=== PATIENT | male | born 1965 | race Caucasian/White ===

== ENCOUNTER 2020-11-02 23:46 | Emergency (ER) | payer MEDICAID ==
--- NOTE | 2020-11-03 00:19 | EDM.PDOC ---
ED HPI GENERAL MEDICAL PROBLEM - General Chief Complaint: Skin Complaint Stated Complaint: HIGH BP/SPIDER BITES Time Seen by Provider: 11/03/20 00:09 Source of Information: Reports: Patient History Limitations: Reports: No Limitations - History of Present Illness INITIAL COMMENTS - FREE TEXT/NARRATIVE: 55-year-old male presents to the ED complaining of numerous skin sores nape of neck lower back forearms dorsal hands abdominal wall and both anterior lower legs. He has had these for a lengthy period of time. Patient has severe dry skin particularly to his feet with cracking of the heels and in between the toes. Most of his skin itch and problems are secondary to dry skin. He has a component of neurodermatitis on looking at these lesions. He is convinced that there are spiders in his current home that are causing his skin breakdown. They appear to be chronic staph aureus and likely MRSA infection. Patient has chronic pain syndrome likely fibromyalgia syndrome by history. Has a difficult sleeping due to the pain. He knows he has been bitten by ticks in the past and has some concerns about Lyme disease. He originally is from [facility]. He does not think that he is diabetic but has not really been tested. His blood pressure is uncontrolled since he is not been taking metoprolol succinate 25 mg daily. He has been taking the losartan 100 mg daily. Patient reports he has had his place treated by professionals for spiders but he states it did not help. Onset: Unknown/Unsure, Other Duration: Chronic, Other (Hypertensive for many years as well.) Location: Reports: Generalized (Especially nape of neck lower back anterior abdominal wall lower extremities) Quality: Reports: Ache, Burning, Other (Some itching but more burning component to the lesions.) Severity: Moderate (Describes a chronic pain syndrome combined with fibromyalgia syndrome.) Improves with: Reports: None Worsens with: Reports: None Context: Denies: Activity, Exercise, Lifting, Sick Contact, Trauma, Other Associated Symptoms: Reports: Malaise, Rash (Primary reason for coming to the ED with a rash.). 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: Acetaminophen - Related Data Allergies Allergy/AdvReac Type Severity Reaction Status Date / Time No Known Allergies Allergy Verified 05/25/21 00:03 Home Meds: Home Meds Doxycycline [Vibra-Tabs] 100 mg PO Q12HR #36 tab 11/03/20 [Rx] Gabapentin [Neurontin] 600 mg PO BEDTIME #30 tab 11/03/20 [Rx] Losartan [Cozaar] 100 mg PO DAILY #30 tab 11/03/20 [Rx] amLODIPine Besylate [Amlodipine Besylate] 10 mg PO DAILY #30 tablet 11/03/20 [Rx] hydrOXYzine HCL [Hydroxyzine HCl] 50 mg PO DAILY #30 tablet 11/03/20 [Rx] Past Medical History Cardiovascular History: Reports: High Cholesterol, Hypertension, Prior Cardiac Arrest Musculoskeletal History: Reports: Arthritis - Past Surgical History Musculoskeletal Surgical History: Reports: Arthroscopic Knee, Shoulder Surgery Social & Family History - Tobacco Use Tobacco Use Status *Q: Unknown Ever Used Tobacco - Living Situation & Occupation Living situation: Reports: Single Occupation: Unemployed ED ROS GENERAL - Review of Systems Review Of Systems: See Below Constitutional: Reports: Malaise, Fatigue. Denies: Fever, Chills, Decreased Appetite HEENT: Reports: No Symptoms Respiratory: Reports: Shortness of Breath. Denies: Wheezing, Pleuritic Chest Pain (On exertion at times), Cough, Sputum Cardiovascular: Reports: Blood Pressure Problem, Dyspnea on Exertion. Denies: Chest Pain, Claudication, Edema, Lightheadedness, Orthopnea Endocrine: Reports: Fatigue GI/Abdominal: Reports: Constipation : Reports: Frequency, Other (Nocturia x2) Musculoskeletal: Reports: Neck Pain, Shoulder Pain, Back Pain (Bilateral knee pain shoulder pain neck pain back pain), Joint Pain (Particularly in hands across the MCP joints.), Other Skin: Reports: Other (Patient has extremely dry skin particularly his heels great toes with cracking and fissured skin particular on his heels.) Neurological: Reports: Other (Generalized pain syndrome) Psychiatric: Reports: Anxiety Hematologic/Lymphatic: Reports: No Symptoms Immunologic: Reports: No Symptoms ED EXAM, SKIN/RASH Exam: See Below Exam Limited By: No Limitations General Appearance: Alert, WD/WN, Anxious, Moderate Distress, Other (Temperature is 36.4 degrees. Heart rate 84 and sinus respiratory 16 O2 sats 94 to 96% room air BP initially was 176/94 but subsequently has come down to 166 /106.) Eye Exam: Bilateral Eye: Normal Inspection (No scleral icterus or blepharal pallor.), PERRL Throat/Mouth: Normal Inspection, Normal Lips, Normal Oropharynx, Other (Tongue is mildly dry and coated.) Neck: Supple, Non-Tender, Full Range of Motion, Other (Skin rash nape of neck from neurodermatitis). No: Lymphadenopathy (L), Lymphadenopathy (R) Respiratory/Chest: No Respiratory Distress, Lungs Clear, Normal Breath Sounds, No Accessory Muscle Use Cardiovascular: Normal Peripheral Pulses, Regular Rate, Rhythm, No Edema, No Gallop, No Murmur, No Rub Peripheral Pulses: 2+: Carotid (L), Carotid (R), Posterior Tibial (L), Posterior Tibial (R), Dorsalis Pedis (L), Dorsalis Pedis (R) GI/Abdominal: Normal Bowel Sounds, Soft, Non-Tender, No Organomegaly, No Distention, Pelvis Stable, Other (Mildly obese. No surgical scars) Extremities: Other (Patient has joint swelling particularly the MCP joints of the first and second digits bilaterally in his hands. There is some similarly swelling of the MTP joints for second and third both feet. Both knees are mildly warm to palpation.) Neurological: Alert, Oriented, CN II-XII Intact, Normal Cognition, No Motor/Sensory Deficits Psychiatric: Anxious Skin: Rash (Numerous lesions in various degrees of healing with likely a component of MRSA.), Other (Patient has multiple skin lesions nape of neck lower back all in areas that he can scratch at suggesting a neurodermatitis. His skin is extremely dry which is creating his itch burning and chronic itch burn cycle which is causing him to pick at his skin. He is convinced that he is got ticks but th) Location, Skin: Neck, Chest, Abdomen, Back, Upper Extremity, Right, Upper Extremity, Left, Lower Extremity, Right, Lower Extremity, Left Characteristics: Maculopapular Associated features: Warmth, Tenderness Course - Vital Signs Last Recorded V/S: Last Vital Signs Temp 36.4 C 11/02/20 23:59 Pulse 84 11/02/20 23:59 Resp 16 11/02/20 23:59 BP 176/94 H 11/02/20 23:59 Pulse Ox 94 L 11/02/20 23:59 - Orders/Labs/Meds Orders: Active Orders 24 hr Category Date Time Status ROSA MARIA W/REFLEX [REF] Stat Lab 11/03/20 00:44 Received LYME, TOTAL AB TEST/REFLEX [REF] Stat Lab 11/03/20 00:44 Received Labs: Laboratory Tests 11/03/20 11/03/20 11/03/20 Range/Units 00:44 00:44 00:44 Hemoglobin A1c 5.6 ( - 5.6) % TSH 3rd Generation 1.661 (0.358-3.74) uIU/mL Rheumatoid Factor Scrn Negative (NEGATIVE) Meds: Medications Discontinued Medications Generic Name Dose Route Start Last Admin Trade Name Josie PRN Reason Stop Dose Admin Gabapentin 600 mg 11/03/20 00:24 11/03/20 00:42 Gabapentin 600 Mg Tab PO 11/03/20 00:25 600 mg ONETIME ONE Administration Hydroxyzine HCl 50 mg 11/03/20 00:32 11/03/20 00:42 Hydroxyzine Hcl 50 Mg Tab PO 11/03/20 00:33 50 mg ONETIME ONE Administration Ketorolac Tromethamine 60 mg 11/03/20 00:25 11/03/20 00:42 Ketorolac 60 Mg/2 Ml Sdv IM 11/03/20 00:26 60 mg ONETIME ONE Administration - Radiology Interpretation Free Text/Narrative:: 55-year-old male presents to the ED primarily because of a chronic skin disorder that has had for many months. He is convinced that he has been exposed to spider bites in his current dwelling. His lesions are that of neurodermatitis. He has extremely dry skin and this is causing his itch burn cycle and causing him to scratch itch and break down his skin. There is mild secondary skin infection likely from MRSA. These are scattered on his abdominal wall nape of neck lower back upper and lower extremities all places that he can scratch. His skin is extremely dry with thick scaling of both heels great toes. Second problem is that of blood pressure out of control because he has not been able to afford his metoprolol succinate medication for blood pressure control. He is using the losartan 100 mg once daily for blood pressure control and his blood pressure currently is 157/92. He complains of chronic generalized pain syndrome. Inspection of his joints show some osteoarthritic changes in his hands but also some swelling and pain over the MCP joints particularly #2 and 3 of both hands suggesting possible rheumatoid arthritis. There is similarly some swelling of the MP joint MTP joints and his feet. He has arthritic changes in both knees. I suspect is more of a fibromyalgia pain syndrome. Plan I am going to place him on Atarax 50 mg now and also gabapentin 600 mg once daily at bedtime for pain relief. I will refill refill his losartan 100 mg daily and metoprolol succinate 25 mg once daily for blood pressure control. Labs will be done to include a glycosylated protein rheumatoid factor antinuclear antibodies and Lyme disease titer as per his request. He will need to stay on doxycycline 100 mg twice daily for 3 weeks to help clear up his skin wounds. The riojas to getting better would be to slathered his skin with a moisturizing cream such as CeraVe at least twice daily which would bring his skin condition under control. Barriers to getting better are financial. He does not have enough funds as he is not working at this time to afford his medications. - Re-Assessments/Exams Free Text/Narrative Re-Assessment/Exam: 11/03/20 01:09 patient is reluctant to return home to his current sleeping quarters due to fear of spider bites. He will thus stay in the ED until around 0600 hrs. Current medications Atarax 50 mg and gabapentin 600 mg will provide sedation overnight. He will be kept in the emergency room overnight for observation 11/03/20 04:50 patient has been sleeping while in the ED. Blood pressure is 154/100. O2 sats 95% room air Departure - Departure Time of Disposition: 06:21 Disposition: Home, Self-Care 01 Condition: Fair Clinical Impression: Xeroderma, Folliculitis, Essential hypertension, Chronic idiopathic pain syndrome - Discharge Information *PRESCRIPTION DRUG MONITORING PROGRAM REVIEWED*: Not Applicable *COPY OF PRESCRIPTION DRUG MONITORING REPORT IN PATIENT TANA: Not Applicable Prescriptions: amLODIPine Besylate [Amlodipine Besylate] 10 mg PO DAILY #30 tablet Losartan [Cozaar] 100 mg PO DAILY #30 tab hydrOXYzine HCL [Hydroxyzine HCl] 50 mg PO DAILY #30 tablet Gabapentin [Neurontin] 600 mg PO BEDTIME #30 tab Doxycycline [Vibra-Tabs] 100 mg PO Q12HR #36 tab Instructions: Chronic Pain, Adult, Folliculitis, Hypertension, Adult Referrals: January Emanuel MD [Primary Care Provider] - Forms: ED Department Discharge Additional Instructions: Evaluation in the emergency room today in regards to chronic skin condition with ulceration of skin which is generalized chest wall abdominal wall anterior upper and lower legs and upper and lower back. The skin rash is primarily caused from severe dry skin which because xeroderma. As you can see you thickened skin on the heels and toes is secondary to dry skin. I would suggest picking up some CeraVee cream at [facility] and using it twice daily on all affected skin at least once at bedtime as well. After 3 weeks or so the skin will have received enough moisture to start to heal the skin wounds and ulcerations. At present several of the skin wounds are ulcerated with loss of skin from scratching. We call this neurodermatitis. Treatment is antibiotic doxycycline 100 mg by mouth morning and evening for 21 days for 3 weeks to help him heal and clear up any staph aureus infection is on her skin and helps cause these wounds to become secondarily infected. Blood pressure control is to be losartan 100 mg once daily and I changed her blood pressure medication to amlodipine 10 mg once daily which will be cheaper for you and carries less side effects and will be more effective at lowering your blood pressure this should be taken once daily at bedtime. May use Atarax 50 mg at bedtime to aid sleep. Suggest use of gabapentin 600 mg at bedtime for at least 1 month as a trial of medication to see if it helps with your chronic pain. Lab tests were drawn today for rheumatoid arthritis, Lyme disease, lupus erythematosus which are the most co mmon types of arthritis outside of [id number] arthritis called osteoarthritis. Glycosylated protein was done today as well to look at your blood sugars over the last 3 months to make sure you are not diabetic as diabetes can create the skin sores that you are currently experiencing if you have it. Suggest follow-up with your primary care physician in 3 weeks time Sepsis Event Note (ED) - Evaluation Sepsis Screening Result: No Definite Risk - Focused Exam Vital Signs: Vital Signs Temp Pulse Resp BP Pulse Ox 11/02/20 23:59 36.4 C 84 16 176/94 H 94 L - My Orders Last 24 Hours: My Active Orders 11/03/20 00:44 ROSA MARIA W/REFLEX [REF] Stat LYME, TOTAL AB TEST/REFLEX [REF] Stat - Assessment/Plan Last 24 Hours: My Active Orders 11/03/20 00:44 ROSA MARIA W/REFLEX [REF] Stat LYME, TOTAL AB TEST/REFLEX [REF] Stat
[2020-11-03] MEDS ORDERED: Gabapentin 600 MG Tab PO ONE (00:24)
[2020-11-03] MEDS ORDERED: Ketorolac 60 MG/2 ML SDV IM ONE (00:25)
[2020-11-03] MEDS ORDERED: hydrOXYzine HCl 50 MG Tab PO ONE (00:32)
[2020-11-03 01:10] LABS: HEMOGLOBIN A1C 5.6 %
== END 2020-11-03 06:21 | disposition home or self-care (01) ==
LOC: JD.ED 23:46
DX: L73.9 Follicular disorder, unspecified (principal); Q80.9 Congenital ichthyosis, unspecified; I10 Essential (primary) hypertension; G89.4 Chronic pain syndrome; Z79.899 Other long term (current) drug therapy
CPT/HCPCS: 36415; 83036; 84443; 86038; 86430; 86618; 96372; 99283; A9270; J1885; 99284

== ENCOUNTER 2020-11-11 23:07 | Emergency (ER) | payer SELFPAY | END 2020-11-12 01:50 | LOC: JD.ED 23:07 | DX: Z53.21 Procedure and treatment not carried out due to patient leaving prior to being seen by health care provider (principal) ==

== ENCOUNTER 2020-11-12 04:24 | Emergency (ER) | payer SELFPAY ==
--- NOTE | 2020-11-12 04:52 | EDM.PDOC ---
ED HPI GENERAL MEDICAL PROBLEM - General Chief Complaint: Skin Complaint Stated Complaint: PT HAS BUGS Time Seen by Provider: 11/12/20 04:42 Source of Information: Reports: Patient History Limitations: Reports: No Limitations - History of Present Illness INITIAL COMMENTS - FREE TEXT/NARRATIVE: 55-year-old male presents to the ED feeling quite distraught. Patient feels like he is going crazy. By history he has a chronic neurodermatitis which she is not excepting the diagnosis of. Patient has chronic itching and swears that he can see bugs under his skin particularly ticks. He feels that he is living in a bug infested suite in the basement of the home here in [place]. He states there are spiders centipedes and ticks outside of the home in the grass. I had seen this patient 10 days ago and he has a evidence of chronic scarring and nape of his neck upper back shoulders arms lower extremities dorsal feet from neurodermatitis and picking at his skin. The night he has not been able to sleep due to itching and becomes more agitated over time. He was in the ED earlier but left prior to being seen as the ED was extremely busy at that time. Patient was not able to fill prescriptions for medications prescribed last time (due to financial constraints) which were doxycycline 100 mg twice daily for 21 days ,as there were some of his lesions that were secondarily infected from likely dirty fingernails. Possibly staph aureus infection as well. He has a history of fibromyalgia. He was prescribed gabapentin 600 mg at bedtime which he was not able to afford or fill the script. He never filled the doxycycline either. Patient is taking a shower 4 times a day as well in the hopes of getting his skin clean. This is only contributing to the dryness. On last assessment I also refilled his losartan and metoprolol which he had been off of due to not being able to afford medication for his hypertension. His blood pressure remains elevated in the 150s to 180s. Once he is relaxed his blood pressure comes down. Onset: Other (Condition is chronic. He states it started since he moved to [place] from [facility]. I am unclear how long this has been.) Duration: Chronic, Constant, Getting Worse Location: Reports: Generalized (Not involving his scalp. But primarily the nape of neck shoulders upper arms abdominal wall and lower extremities particular below the knee and dorsal feet.) Quality: Reports: Other (Is that he is been bitten by multiple bugs including ticks and spiders causing his current neurodermatitis symptoms.) Severity: Moderate Improves with: Reports: None Worsens with: Reports: None Context: Denies: Activity, Exercise, Lifting, Sick Contact, Trauma Associated Symptoms: Reports: Loss of Appetite, Malaise (From lack of sleep). Denies: Confusion, Chest Pain, Cough, cough w sputum, Diaphoresis, Fever/Chills, Headaches, Nausea/Vomiting, Rash, Seizure, Shortness of Breath, Syncope, Weakness Treatments [employer]: Reports: Other (see below) Generalized Pain Score (Numeric/FACES): 3 - Related Data Allergies Allergy/AdvReac Type Severity Reaction Status Date / Time No Known Allergies Allergy Verified 11/12/20 04:49 Home Meds: Home Meds Doxycycline [Vibra-Tabs] 100 mg PO Q12HR #36 tab 11/03/20 [Rx] Gabapentin [Neurontin] 600 mg PO BEDTIME #30 tab 11/03/20 [Rx] Losartan [Cozaar] 100 mg PO DAILY #30 tab 11/03/20 [Rx] amLODIPine Besylate [Amlodipine Besylate] 10 mg PO DAILY #30 tablet 11/03/20 [Rx] hydrOXYzine HCL [Hydroxyzine HCl] 50 mg PO DAILY #30 tablet 11/03/20 [Rx] hydrOXYzine HCL [Hydroxyzine HCl] 50 mg PO DAILY #30 tablet 11/12/20 [Rx] Past Medical History Cardiovascular History: Reports: High Cholesterol, Hypertension, Prior Cardiac Arrest Musculoskeletal History: Reports: Arthritis - Infectious Disease History Infectious Disease History: Reports: Novel Coronavirus - Past Surgical History HEENT Surgical History: Reports: Oral Surgery Musculoskeletal Surgical History: Reports: Arthroscopic Knee, Shoulder Surgery Social & Family History - Caffeine Use Caffeine Use: Reports: Coffee - Living Situation & Occupation Living situation: Reports: Single Occupation: Unemployed ED ROS GENERAL - Review of Systems Review Of Systems: See Below Constitutional: Reports: Malaise, Fatigue, Decreased Appetite. Denies: Fever, Chills HEENT: Reports: Vision Change (Appreciates floaters in his visual farley at times.) Respiratory: Reports: No Symptoms Cardiovascular: Reports: Blood Pressure Problem Endocrine: Reports: No Symptoms GI/Abdominal: Reports: No Symptoms : Reports: Frequency, Other (Nocturia x2-3.) Musculoskeletal: Reports: No Symptoms Skin: Reports: Other (As described above. He has numerous healed scars in the nape of his neck upper back and arms and this condition has been going on for a long period of time. Patient has multiple superficial ulcerations of the skin upper arms nape of neck shoulders where he can reach and scratch. There are few on ) Neurological: Reports: Other (Chronic itch scratch cycle.) Psychiatric: Reports: Anxiety, Other Hematologic/Lymphatic: Reports: No Symptoms (Insomnia due to the itch scratch cycle.) Immunologic: Reports: No Symptoms ED EXAM, SKIN/RASH Exam: See Below Exam Limited By: No Limitations General Appearance: Alert, WD/WN, Anxious, Moderate Distress, Other (Appears tired. Temperature is 36.2. Heart rate 82 and sinus. Respiratory is 20 O2 sats 98% room air. Blood pressure was elevated 187/82. It came down to 150/78 after he was less apprehensive.) Eye Exam: Bilateral Eye: Conjunctival Injection (Mild bilaterally.), Normal Inspection (No scleral icterus or blepharal pallor.), PERRL, Proptosis (Today he does appear to have very mild proptosis.) Throat/Mouth: Normal Teeth, Other Head: Atraumatic, Normocephalic Neck: Normal Inspection, Supple, Non-Tender, Full Range of Motion. No: Lymphadenopathy (L), Lymphadenopathy (R) Respiratory/Chest: No Respiratory Distress, Lungs Clear, Normal Breath Sounds, No Accessory Muscle Use Cardiovascular: Normal Peripheral Pulses, Regular Rate, Rhythm, No Edema, No Gallop, No Murmur, No Rub Peripheral Pulses: 2+: Posterior Tibial (L), Posterior Tibial (R), Dorsalis Pedis (L), Dorsalis Pedis (R), 3+: Carotid (L), Carotid (R) GI/Abdominal: Normal Bowel Sounds, Soft, Non-Tender, No Organomegaly, No Mass, Pelvis Stable. No: Guarding, Rigid, Rebound Back Exam: Normal Inspection, Full Range of Motion. No: CVA Tenderness (L), CVA Tenderness (R) Extremities: Normal Inspection, Normal Range of Motion, Non-Tender, No Pedal Edema Neurological: Alert, Oriented, CN II-XII Intact, Normal Cognition, No Motor/Sensory Deficits Psychiatric: Anxious, Tearful Skin: Warm, Dry, Excoriations, Increased Warmth (No purulent wounds.), Other (Multiple superficial ulcerations on the places that he can scratch at. This is the nape of his neck posterior shoulders upper arms . Abdominal wall . Both lower extremities including dorsal feet. Some these wounds are warm to touch suggesting secondary mild bacterial infection. ) Location, Skin: Neck, Chest, Abdomen, Upper Extremity, Right, Upper Extremity, Left, Lower Extremity, Right, Lower Extremity, Left, Other (No rash in the distribution that he can scratch at it. No lesions on his scalp.) Characteristics: Other (Superficial ulcerations from scratching and picking.) Associated features: Warmth (A few of the lesions like dorsal left foot are warm to touch suggesting a low-grade infection. No purulent material evident in any of the wounds.) Course - Vital Signs Last Recorded V/S: Last Vital Signs Temp 36.1 C 11/12/20 07:18 Pulse 82 11/12/20 04:34 Resp 18 11/12/20 07:18 BP 162/92 H 11/12/20 07:18 Pulse Ox 95 11/12/20 07:18 - Orders/Labs/Meds Meds: Medications Discontinued Medications Generic Name Dose Route Start Last Admin Trade Name Freq PRN Reason Stop Dose Admin Hydroxyzine HCl 75 mg 11/12/20 05:00 11/12/20 05:13 Hydroxyzine Hcl 50 Mg Tab PO 11/12/20 05:01 75 mg ONETIME ONE Administration - Radiology Interpretation Free Text/Narrative:: 55-year-old male presents to the ED quite beside himself feeling that he has chronic tick and spider bite infestation causing current dermatitis. We had discussed this when I had seen him last that he has a form of neurodermatitis due to chronic skin picking and itch scratch cycle. He has multiple lesions on the nape of his neck from skin picking. There are numerous areas that have healed with scarring and depigmentation. This includes his upper extremities anterior chest anterior abdominal wall and both lower extremities particular below the knees. He has no lesions in the areas that he cannot scratch. He feels that he is living in a basement suite of a house here in [place] that is infested with centipedes, spiders and ticks in the grass outside. He feels he is seeing the ticks on the floor of the shower. He has picked them off his skin. I do not doubt that he may have picked ticks off of his skin but there is no sign of tick infestation in any of his current superficial ulcerations. He continues to shower 4 times daily in an effort to cleanse his skin. This is only drying it out and causing more of an itch scratch cycle. Last time I seen him I did prescribe him gabapentin 610 mg at bedtime. Doxycycline 100 mg twice daily for 3 weeks. I refilled his lisinopril and metoprolol for his hypertension. He was not able to fill any of these prescriptions due to financial barriers. He is hopefully going to get a job in the near future that will include health insurance and allow him to purchase these prescriptions. Patient was very apprehensive and tearful tonight. He feels he is at wits end. He just cannot sleep etc. Going to give him Atarax 25 mg p.o. in the hopes that this will induce some relief of the itching and sedation allow him to get some sleep. Plan will be to write a prescription for this medication 50 mg at bedtime which he should be able to afford it is very cheap. I tried to reassure him at length that he does not have any clinical manifestation of a insect induced dermatitis. Patient may also benefit from doxepin 10 to 25 mg at bedtime to help reduce the itch scratch cycle. Departure - Departure Time of Disposition: 07:15 Disposition: Home, Self-Care 01 Condition: Fair Clinical Impression: Neurodermatitis, localized, Pruritic rash, Xeroderma, Essential hypertension, Chronic idiopathic pain syndrome - Discharge Information *PRESCRIPTION DRUG MONITORING PROGRAM REVIEWED*: Not Applicable *COPY OF PRESCRIPTION DRUG MONITORING REPORT IN PATIENT TANA: Not Applicable Prescriptions: hydrOXYzine HCL [Hydroxyzine HCl] 50 mg PO DAILY #30 tablet Instructions: Pruritus Referrals: January Emanuel MD [Primary Care Provider] - Forms: ED Department Discharge Additional Instructions: Evaluation in the emergency room this morning in regards to persistent superficial ulcerative rash nape of neck posterior shoulders upper arms abdominal wall lower extremities and left dorsal foot. These are all areas that you can reach and scratch which is causing the superficial ulceration and numerous scars in your upper back shoulders arms and abdominal wall as this condition has been going on for a lengthy period of time. Lab work done last time reveals no evidence of Lyme disease or tickborne illness. You have what is called neurodermatitis. This means that you have generalized itching which causes you to scratch and you feel the causes due to tick and or spider bite infestation. I am not saying that there are not spiders and potential centi pedes in current basement suite where you are sleeping. However none of your lesions are compatible with a spider bite in terms that spiders cause a deep ulcerative lesion that takes many months to heal. Many of your lesions have healed on the upper back and nape of your neck on comparison to when I seen you last. New lesions of course of appeared on your shoulders and upper arms abdominal wall and left lower extremities. The condition is made worse by showering more than once a day or using any soap with a deodorant or perfume smell to it. These all dry out the skin and cause more itching and skin breakdown. Suggest the use of Atarax 50 mg at bedtime to help reduce itching and provide some degree of sedation so that you can get proper sleep. Fill prescriptions for your blood pressure and when you can afford it the prescription for gabapentin 600 mg at bedtime which will help immensely as well. Sepsis Event Note (ED) - Evaluation Sepsis Screening Result: No Definite Risk
[2020-11-12] MEDS ORDERED: hydrOXYzine HCl 50 MG Tab PO ONE (05:00)
== END 2020-11-12 07:19 | disposition home or self-care (01) ==
LOC: JD.ED 04:24
DX: L28.0 Lichen simplex chronicus (principal); I10 Essential (primary) hypertension; L29.9 Pruritus, unspecified; G89.4 Chronic pain syndrome; L85.0 Acquired ichthyosis; Z79.899 Other long term (current) drug therapy
CPT/HCPCS: 99282; A9270; 99283

== ENCOUNTER 2020-11-16 01:03 | Emergency (ER) | payer SELFPAY ==
--- NOTE | 2020-11-16 01:35 | EDM.PDOC ---
ED HPI GENERAL MEDICAL PROBLEM - General Chief Complaint: Upper Extremity Injury/Pain Stated Complaint: FINGER LAC Time Seen by Provider: 11/16/20 01:13 Source of Information: Reports: Patient History Limitations: Reports: No Limitations - History of Present Illness INITIAL COMMENTS - FREE TEXT/NARRATIVE: Mr. Rosales is a very pleasant 55-year-old gentleman who now presents the ED after sustaining a laceration to his left 2nd finger around 14:00 yesterday afternoon, 11/15/2020, on a table saw. The laceration is relatively minor, and he was not going to come to the ED, but he states that he decided to come to get evaluated. The patient states that he has been on doxycycline, for treatment of multiple tick bites, for the past 2 weeks. He has refills available. Here in the ED, the patient's initial BP is found to be elevated at 162/92, otherwise, he is hemodynamically stable, afebrile, saturating 97% on room air. Peers to be relatively comfortable, in no acute distress. Other than his finger laceration and multiple tick bites, the patient denies having a recent fever, chills, sore throat, ear pain, nasal or sinus congestion, cough, dyspnea, chest pain, palpitations, nausea, vomiting, constipation, diarrhea, abdominal pain, urinary symptoms, recent weight gain or weight loss, recent bloody bowel movements or black bowel movements, recent joint aches, head aches, or rashes. I reviewed the PMHx/PSHx/SocHx, which was reviewed with the patient by the RN. The patient's PCP is Dr. January Emanuel. Left Finger-Index Pain Score (Numeric/FACES): 4 - Related Data Allergies Allergy/AdvReac Type Severity Reaction Status Date / Time No Known Allergies Allergy Verified 11/16/20 01:15 Home Meds: Home Meds Doxycycline [Vibra-Tabs] 100 mg PO Q12HR #36 tab 11/03/20 [Rx] Gabapentin [Neurontin] 600 mg PO BEDTIME #30 tab 11/03/20 [Rx] Losartan [Cozaar] 100 mg PO DAILY #30 tab 11/03/20 [Rx] amLODIPine Besylate [Amlodipine Besylate] 10 mg PO DAILY #30 tablet 11/03/20 [Rx] hydrOXYzine HCL [Hydroxyzine HCl] 50 mg PO DAILY #30 tablet 11/03/20 [Rx] hydrOXYzine HCL [Hydroxyzine HCl] 50 mg PO DAILY #30 tablet 11/12/20 [Rx] Past Medical History Cardiovascular History: Reports: High Cholesterol, Hypertension, Prior Cardiac Arrest Musculoskeletal History: Reports: Arthritis Psychiatric History: Reports: Anxiety - Infectious Disease History Infectious Disease History: Reports: Novel Coronavirus - Past Surgical History HEENT Surgical History: Reports: Oral Surgery Musculoskeletal Surgical History: Reports: Arthroscopic Knee, Shoulder Surgery Social & Family History - Caffeine Use Caffeine Use: Reports: Coffee - Living Situation & Occupation Living situation: Reports: Single Occupation: Unemployed ED ROS GENERAL - Review of Systems Review Of Systems: Comprehensive ROS is negative, except as noted in HPI. ED EXAM, SKIN/RASH Exam: See Below Exam Limited By: No Limitations General Appearance: Alert, WD/WN, No Apparent Distress Extremities: Other (There is an approximately 1.5 cm laceration to the radial aspect of the patient's left 2nd finger, over the PIP joint. The laceration is full-thickness, but barely, and most of it is an avulsion laceration. No associated swelling, erythema, ecchymosis, or drainage. No apparent tendon injury. Neurova) Course - Vital Signs Last Recorded V/S: Last Vital Signs Temp 36.6 C 11/16/20 01:16 Pulse 80 11/16/20 01:16 Resp 16 11/16/20 01:16 BP 164/92 H 11/16/20 01:16 Pulse Ox 97 11/16/20 01:16 - Re-Assessments/Exams Free Text/Narrative Re-Assessment/Exam: 11/16/20 01:30 As above, the patient sustained a laceration to the radial aspect of his left 2nd finger on a table saw about 12 hours ago. The laceration is only about 1.5 cm in length, it is not very deep, and most of it is an avulsion laceration that cannot be sutured. I am recommending that the patient keep the wound clean with ordinary soap and water, pat it dry, apply a thin smear of bacitracin ointment, then cover with a clean bandage, daily. It is unlikely to get infected, especially since he is already on doxycycline. Departure - Departure Time of Disposition: 01:31 Disposition: Home, Self-Care 01 Condition: Good Clinical Impression: Laceration of left index finger - Discharge Information *PRESCRIPTION DRUG MONITORING PROGRAM REVIEWED*: Not Applicable *COPY OF PRESCRIPTION DRUG MONITORING REPORT IN PATIENT TANA: Not Applicable Instructions: Nonsutured Laceration Care Referrals: January Emanuel MD [Primary Care Provider] - Forms: ED Department Discharge Additional Instructions: You were seen in the emergency room after lacerating your left index finger on a table saw yesterday afternoon. The wound does not require suturing. We recommend that you keep it clean with ordinary soap and water, pat it dry, apply a thin smear of bacitracin antibiotic ointment, then cover with a clean bandage, daily. If the wound should become wet or dirty, reclean it, reapply a thin smear of bacitracin ointment, then reapply a clean bandage. If any other problems, please do not hesitate to return to the ER. Sepsis Event Note (ED) - Evaluation Sepsis Screening Result: No Definite Risk - Focused Exam Vital Signs: Vital Signs Temp Pulse Resp BP Pulse Ox 11/16/20 01:16 36.6 C 80 16 164/92 H 97
== END 2020-11-16 01:39 | disposition home or self-care (01) ==
LOC: SUPCPDRO 01:03 → JD.ED 01:03
DX: S61.211A Laceration without foreign body of left index finger without damage to nail, initial encounter (principal); E78.00 Pure hypercholesterolemia, unspecified; I10 Essential (primary) hypertension; Z79.899 Other long term (current) drug therapy; W27.0XXA Contact with workbench tool, initial encounter
CPT/HCPCS: 99282

== ENCOUNTER 2020-12-26 04:38 | Emergency (ER) | payer SELFPAY ==
--- NOTE | 2020-12-26 05:23 | EDM.PDOC ---
ED HPI GENERAL MEDICAL PROBLEM - General Chief Complaint: Skin Complaint Stated Complaint: INFECTION ALL OVER BODY Time Seen by Provider: 12/26/20 05:17 - History of Present Illness INITIAL COMMENTS - FREE TEXT/NARRATIVE: 5-year-old male presents to the emergency room with itching lesions and infection all over. Patient states this is been getting worse he has a long history of neurodermatitis but does not like that diagnosis. He has been seen several times in this emergency room for this condition. He has he has had problems obtaining medications in the past because of financial restraints. 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 And he is concerned about parasites in his bloodstream. He is wondering if we could perhaps biopsy some of these lesions to differentiate if it was an insect versus a spider bite. Bilateral Feet Pain Score (Numeric/FACES): 6 - Related Data Allergies Allergy/AdvReac Type Severity Reaction Status Date / Time No Known Allergies Allergy Verified 12/26/20 05:11 Home Meds: Home Meds Doxycycline [Vibra-Tabs] 100 mg PO Q12HR #36 tab 11/03/20 [Rx] Gabapentin [Neurontin] 600 mg PO BEDTIME #30 tab 11/03/20 [Rx] Losartan [Cozaar] 100 mg PO DAILY #30 tab 11/03/20 [Rx] amLODIPine Besylate [Amlodipine Besylate] 10 mg PO DAILY #30 tablet 11/03/20 [Rx] hydrOXYzine HCL [Hydroxyzine HCl] 50 mg PO DAILY #30 tablet 11/03/20 [Rx] hydrOXYzine HCL [Hydroxyzine HCl] 50 mg PO DAILY #30 tablet 11/12/20 [Rx] Doxycycline [Vibramycin] 100 mg PO BID #20 tab 12/26/20 [Rx] Past Medical History Cardiovascular History: Reports: High Cholesterol, Hypertension, Prior Cardiac Arrest Musculoskeletal History: Reports: Arthritis Psychiatric History: Reports: Anxiety - Infectious Disease History Infectious Disease History: Reports: Novel Coronavirus - Past Surgical History HEENT Surgical History: Reports: Oral Surgery Musculoskeletal Surgical History: Reports: Arthroscopic Knee, Shoulder Surgery Social & Family History - Tobacco Use Tobacco Use Status *Q: Never Tobacco User Second Hand Smoke Exposure: No - Caffeine Use Caffeine Use: Reports: Soda - Recreational Drug Use Recreational Drug Use: No - Living Situation & Occupation Living situation: Reports: Single Occupation: Unemployed ED ROS GENERAL - Review of Systems Review Of Systems: See Below Constitutional: Reports: No Symptoms HEENT: Reports: No Symptoms Respiratory: Reports: No Symptoms Cardiovascular: Reports: No Symptoms Endocrine: Reports: No Symptoms GI/Abdominal: Reports: No Symptoms Skin: Reports: Pruritis, Rash, Lesions, Lumps ED EXAM, SKIN/RASH Exam: See Below Exam Limited By: No Limitations General Appearance: Alert, No Apparent Distress Head: Atraumatic, Normocephalic Neck: Normal Inspection, Supple, Non-Tender, Full Range of Motion Respiratory/Chest: No Respiratory Distress, Lungs Clear, Normal Breath Sounds Cardiovascular: Regular Rate, Rhythm, No Edema, No Murmur Skin: Other (He is covered with multiple lesions that he has been scratching that have surrounded erythema at this point none of them have any obvious purulent drainage. He has multiple excoriations elsewhere and scarring especially on his upper back and neck from picking at his skin in the past) Course - Vital Signs Last Recorded V/S: Last Vital Signs Temp 36.4 C 12/26/20 05:08 Pulse 87 12/26/20 05:08 Resp 20 12/26/20 05:08 BP 165/94 H 12/26/20 05:08 Pulse Ox 95 12/26/20 05:08 - Re-Assessments/Exams Free Text/Narrative Re-Assessment/Exam: 12/26/20 05:35 This is a chronic condition I have advised the patient that I will not do biopsies of this here in the emergency room it would be more appropriate to be done in an outpatient setting where he has continuity of care. He does voice understanding with this. We will start doxycycline 100 mg twice daily for him. He voices understanding of this and agrees to get it picked up he also agrees to take extra precaution out in the sunlight where a large hat longsleeve shirt and long pants to protect his skin from the sun. Departure - Departure Time of Disposition: 05:37 Disposition: Home, Self-Care 01 Clinical Impression: Pruritic rash, Neurodermatitis - Discharge Information Referrals: January Emanuel MD [Primary Care Provider] - Additional Instructions: Return to the emergency room with any questions problems worsening symptoms. [facility] for doxycycline, this is an antibiotic. Take it twice daily until all gone be sure and wear a large hat and good sun protection over your arms and legs as we discussed. Up with your regular physician in a couple of weeks and discuss methods to help your skin to condition Sepsis Event Note (ED) - Evaluation Sepsis Screening Result: No Definite Risk - Focused Exam Vital Signs: Vital Signs Temp Pulse Resp BP Pulse Ox 12/26/20 05:08 36.4 C 87 20 165/94 H 95
== END 2020-12-26 06:00 | disposition home or self-care (01) ==
LOC: JD.ED 04:38
DX: L28.0 Lichen simplex chronicus (principal); L29.9 Pruritus, unspecified; I10 Essential (primary) hypertension; Z86.16 Personal history of COVID-19; Z79.899 Other long term (current) drug therapy
CPT/HCPCS: 99282

== ENCOUNTER 2020-12-27 06:50 | Emergency (ER) | payer SELFPAY ==
--- NOTE | 2020-12-27 08:09 | EDM.PDOC ---
ED HPI GENERAL MEDICAL PROBLEM - General Chief Complaint: Skin Complaint Stated Complaint: poss bug bites/rash Time Seen by Provider: 12/27/20 07:02 Source of Information: Reports: Patient History Limitations: Reports: No Limitations - History of Present Illness INITIAL COMMENTS - FREE TEXT/NARRATIVE: The patient presents with a rash. He says for the past 4 to 5 months he has had lesions all over his body. He feels they may be a bite from a tick, bed bug or spider. He has been seen here a few times and as recent as yesterday. He was put on doxycycline yesterday. He was wanting a biopsy yesterday. One was not done. That is not something we do out of the emergency department. He says they do itch and hurt. There is some drainage at times but none now. He has no fever, chills, cough, shortness of breath, abdominal pain, nausea or vomiting. He does say that his chest has been hurting for the past month. He has a history of hypertension and hypercholesterolemia. He did not take his blood pressure med but did take his cholesterol med. Onset: Gradual Duration: Week(s): Location: Reports: Generalized Quality: Reports: Sharp Severity: Mild Improves with: Reports: None Worsens with: Reports: None Associated Symptoms: Reports: Chest Pain. Denies: Cough, Fever/Chills, Headaches, Nausea/Vomiting, Shortness of Breath Generalized Pain Score (Numeric/FACES): 8 - Related Data Allergies Allergy/AdvReac Type Severity Reaction Status Date / Time No Known Allergies Allergy Verified 12/27/20 07:08 Home Meds: Home Meds Gabapentin [Neurontin] 600 mg PO BEDTIME #30 tab 11/03/20 [Rx] Losartan [Cozaar] 100 mg PO DAILY #30 tab 11/03/20 [Rx] amLODIPine Besylate [Amlodipine Besylate] 10 mg PO DAILY #30 tablet 11/03/20 [Rx] hydrOXYzine HCL [Hydroxyzine HCl] 50 mg PO DAILY #30 tablet 11/03/20 [Rx] hydrOXYzine HCL [Hydroxyzine HCl] 50 mg PO DAILY #30 tablet 11/12/20 [Rx] Doxycycline [Vibramycin] 100 mg PO BID #20 tab 12/26/20 [Rx] Rosuvastatin [Crestor] 10 mg PO BEDTIME 12/27/20 [History] Past Medical History Cardiovascular History: Reports: High Cholesterol, Hypertension, Prior Cardiac Arrest Musculoskeletal History: Reports: Arthritis Psychiatric History: Reports: Anxiety Dermatologic History: Reports: Other (See Below) Other Dermatologic History: reported bed bug bites. - Infectious Disease History Infectious Disease History: Reports: Novel Coronavirus - Past Surgical History HEENT Surgical History: Reports: Oral Surgery Musculoskeletal Surgical History: Reports: Arthroscopic Knee, Shoulder Surgery Social & Family History - Tobacco Use Tobacco Use Status *Q: Never Tobacco User - Caffeine Use Caffeine Use: Reports: None - Recreational Drug Use Recreational Drug Use: No - Living Situation & Occupation Living situation: Reports: Single Occupation: Unemployed ED ROS GENERAL - Review of Systems Review Of Systems: See Below Constitutional: Reports: No Symptoms HEENT: Reports: No Symptoms Respiratory: Reports: No Symptoms Cardiovascular: Reports: No Symptoms Endocrine: Reports: No Symptoms GI/Abdominal: Reports: No Symptoms : Reports: No Symptoms Musculoskeletal: Reports: No Symptoms Skin: Reports: Other (Lesions over his legs, arms, back, chest, abdomen and pelvis.) ED EXAM, SKIN/RASH Exam: See Below Exam Limited By: No Limitations General Appearance: Alert, No Apparent Distress Ears: Normal External Exam Nose: Normal Inspection Head: Atraumatic, Normocephalic Neck: Normal Inspection Respiratory/Chest: No Respiratory Distress, Lungs Clear, Normal Breath Sounds Cardiovascular: Regular Rate, Rhythm, No Edema, No Murmur GI/Abdominal: Soft, Non-Tender, No Organomegaly, No Mass Extremities: Other (lesions) Neurological: Alert, Oriented, No Motor/Sensory Deficits Skin: Rash (Papules and small ulcers on his legs, arms, back, chest and abdomen. There is not a large amount but a few in each body part. No drainage noted) #1 Interpretation EKG Date: 12/27/20 Time: 07:48 Rhythm: NSR Rate (Beats/Min): 79 [place]: Normal P-Wave: Present QRS: Normal ST-T: Normal QT: Normal Course - Vital Signs Last Recorded V/S: Last Vital Signs Temp 97.4 F 12/27/20 06:55 Pulse 82 12/27/20 06:55 Resp 18 12/27/20 06:55 BP 166/96 H 12/27/20 06:55 Pulse Ox 96 12/27/20 06:55 - Orders/Labs/Meds Orders: Active Orders 24 hr Category Date Time Status Cardiac Monitoring [RC] . DIRECTED Care 12/27/20 07:19 Active EKG Documentation Completion [RC] STAT Care 12/27/20 07:20 Active Chest 1V Frontal [CR] Stat Exams 12/27/20 07:20 Taken Losartan [Cozaar] Med 12/27/20 08:19 Once 100 mg PO ONETIME ONE Medication Orders Losartan Potassium (Losartan 100 Mg Tab) 100 mg PO ONETIME ONE Stop: 12/27/20 08:20 Labs: Laboratory Tests 12/27/20 12/27/20 Range/Units 07:37 07:37 WBC 5.87 (4.23-9.07) K/mm3 RBC 4.29 L (4.63-6.08) M/mm3 Hgb 14.2 (13.7-17.5) gm/dl Hct 42.6 (40.1-51.0) % MCV 99.3 H (79.0-92.2) fl MCH 33.1 H (25.7-32.2) pg MCHC 33.3 (32.2-35.5) g/dl RDW Std Deviation 46.4 H (35.1-43.9) fL Plt Count 284 (163-337) K/mm3 MPV 9.6 (9.4-12.3) fl Neut % (Auto) 63.1 (34.0-67.9) % Lymph % (Auto) 20.3 L (21.8-53.1) % [place] % (Auto) 13.5 H (5.3-12.2) % Eos % (Auto) 2.6 (0.8-7.0) Baso % (Auto) 0.5 (0.1-1.2) % Neut # (Auto) 3.71 (1.78-5.38) K/mm3 Lymph # (Auto) 1.19 L (1.32-3.57) K/mm3 [place] # (Auto) 0.79 (0.30-0.82) K/mm3 Eos # (Auto) 0.15 (0.04-0.54) K/mm3 Baso # (Auto) 0.03 (0.01-0.08) K/mm3 Sodium 143 (136-145) mEq/L Potassium 3.6 (3.5-5.1) mEq/L Chloride 107 (98-107) mEq/L Carbon Dioxide 26 (21-32) mEq/L Anion Gap 13.6 (5-15) BUN 23 H (7-18) mg/dL Creatinine 1.2 (0.7-1.3) mg/dL Est Cr Clr Drug Dosing 68.74 mL/min Estimated GFR (MDRD) > 60 (>60) mL/min BUN/Creatinine Ratio 19.2 H (14-18) Glucose 120 H (70-99) mg/dL Calcium 8.7 (8.5-10.1) mg/dL Total Bilirubin 0.4 (0.2-1.0) mg/dL AST 34 (15-37) U/L ALT 39 (16-63) U/L Alkaline Phosphatase 92 (46-116) U/L Troponin I 0.026 (0.00-0.056) ng/mL C-Reactive Protein 0.7 (<1.0) mg/dL Total Protein 7.1 (6.4-8.2) g/dl Albumin 3.3 L (3.4-5.0) g/dl Globulin 3.8 gm/dL Albumin/Globulin Ratio 0.9 L (1-2) Meds: Medications Generic Name Dose Route Start Last Admin Trade Name Freq PRN Reason Stop Dose Admin Losartan Potassium 100 mg 12/27/20 08:19 Losartan 100 Mg Tab PO 12/27/20 08:20 ONETIME ONE - Re-Assessments/Exams Free Text/Narrative Re-Assessment/Exam: 12/27/20 08:11 I ordered an EKG, CXR, and labs. His EKG shows a NSR with no acute changes. 12/27/20 08:19 His CXR looks good. His CBC looks good. His eosinophils are normal. I doubt this is a parasite. His CMP looks good. His troponin is normal. His blood pressure is high. I will give him a dose of his losarten here and he will nut picker his prescription tomorrow. He needs to see if the doxycycline will work and then he needs to follow up with Dr Min. She will be the one to do further testing if needed and refer to a skin former if needed. Departure - Departure Time of Disposition: 08:25 Disposition: Home, Self-Care 01 Condition: Good Clinical Impression: Atypical chest pain, Neurodermatitis Hypertension Qualifiers: Hypertension type: primary hypertension Qualified Code(s): I10 - Essential (primary) hypertension - Discharge Information *PRESCRIPTION DRUG MONITORING PROGRAM REVIEWED*: Not Applicable *COPY OF PRESCRIPTION DRUG MONITORING REPORT IN PATIENT TANA: Not Applicable Referrals: January Emanuel MD [Primary Care Provider] - 1 Week Forms: ED Department Discharge Additional Instructions: Start taking your blood pressure medication again. You are covered today but you will need to start tomorrow. Keep taking the doxycycline. Follow up with Dr Min this week. Please return if you are worse. Sepsis Event Note (ED) - Evaluation Sepsis Screening Result: No Definite Risk - Focused Exam Vital Signs: Vital Signs Temp Pulse Resp BP Pulse Ox 12/27/20 06:55 97.4 F 82 18 166/96 H 96 - My Orders Last 24 Hours: My Active Orders 12/27/20 07:19 Cardiac Monitoring [RC] . DIRECTED 12/27/20 07:20 EKG Documentation Completion [RC] STAT Chest 1V Frontal [CR] Stat 12/27/20 08:19 Losartan [Cozaar] 100 mg PO ONETIME ONE - Assessment/Plan Last 24 Hours: My Active Orders 12/27/20 07:19 Cardiac Monitoring [RC] . DIRECTED 12/27/20 07:20 EKG Documentation Completion [RC] STAT Chest 1V Frontal [CR] Stat 12/27/20 08:19 Losartan [Cozaar] 100 mg PO ONETIME ONE
[2020-12-27] MEDS ORDERED: Losartan 100 MG Tab PO ONE (08:19)
--- NOTE | 2020-12-27 08:36 | CR ---
Chest: Portable view of the chest was obtained. Comparison: No prior chest imaging is available. Heart size and mediastinum are within normal limits for portable technique. Lungs are clear with no acute parenchymal change. Bony structures show nothing acute. Impression: 1. Nothing acute is appreciated on portable chest x-ray. Diagnostic code #1
== END 2020-12-27 08:45 | disposition home or self-care (01) ==
LOC: JD.ED 06:50
DX: R07.89 Other chest pain (principal); L28.0 Lichen simplex chronicus; E78.00 Pure hypercholesterolemia, unspecified; I10 Essential (primary) hypertension; Z86.16 Personal history of COVID-19; Z79.899 Other long term (current) drug therapy
CPT/HCPCS: 36415; 71045; 80053; 84484; 85025; 86140; 93005; 99285; A9270; 93010; 99283

== ENCOUNTER 2021-07-23 08:31 | Inpatient (IN) | payer SELFPAY ==
[2021-07-23] MEDS ORDERED: Aspirin 81 MG Tab.Chew PO ONE (08:54)
[2021-07-23] MEDS ORDERED: Sodium Chloride 0.9% 10 ML Syringe FLUSH PRN (08:54)
[2021-07-23] MEDS ORDERED: Diltiazem 50 MG/10 ML SDV IVPUSH ONE (08:55)
[2021-07-23] MEDS: Diltiazem 100 MG in Sodium Chloride 0.9% 100 ML IV SCH ×2 (09:16→17:05)
[2021-07-23 10:47] LABS: CORONAVIRUS COVID-19 NAA POSITIVE (NEGATIVE)
[2021-07-23] MEDS ORDERED: Sodium Chloride 0.9% 10 ML Syringe FLUSH ONE (11:56)
[2021-07-23] MEDS ORDERED: Iopamidol 755 Mg/ML 100 ML Bottle IVPUSH ONE (11:56)
[2021-07-23] MEDS ORDERED: Sodium Chloride 0.9% 100 ML IV SCH (12:00)
[2021-07-23] MEDS ORDERED: Ondansetron 4 MG/2 ML SDV IV PRN (12:40)
[2021-07-23] MEDS ORDERED: Acetaminophen 325 MG Tab PO PRN (12:40)
[2021-07-23] MEDS: Dexamethasone 4 MG/ML SDV IVPUSH SCH (13:30)
[2021-07-23] MEDS ORDERED: REMDESIVIR 200 MG in Sodium Chloride 0.9% 250 ML IV ONE (13:30)
[2021-07-23] MEDS: Apixaban 5 MG Tab PO SCH ×2 (13:50→21:30)
[2021-07-23] MEDS ORDERED: LORazepam 2 MG/ML SDV IVPUSH ONE (15:54)
[2021-07-23] MEDS ORDERED: Furosemide 20 MG/2 ML VIAL IVPUSH ONE (18:39)
[2021-07-23] MEDS ORDERED: Metoprolol Tartrate 5 MG/5 ML SDV IVPUSH PRN (18:39)
[2021-07-23] MEDS ORDERED: hydrALAZINE 20 MG/ML SDV IVPUSH PRN (18:40)
[2021-07-24] MEDS: Diltiazem 100 MG in Sodium Chloride 0.9% 100 ML IV SCH (03:38)
[2021-07-24] MEDS: Metoprolol Tartrate 50 MG Tab PO SCH ×2 (08:25→18:44)
[2021-07-24] MEDS: Apixaban 5 MG Tab PO SCH ×2 (08:26→20:14)
[2021-07-24] MEDS: Furosemide 20 MG/2 ML VIAL IVPUSH SCH ×2 (08:26→20:14)
[2021-07-24] MEDS: Dexamethasone 4 MG/ML SDV IVPUSH SCH (08:26)
[2021-07-24] MEDS ORDERED: LORazepam 2 MG/ML SDV IVPUSH ONE (11:24)
[2021-07-24] MEDS: REMDESIVIR 100 MG in Sodium Chloride 0.9% 250 ML IV SCH (12:30)
[2021-07-24] MEDS ORDERED: Melatonin 3 MG Tab PO ONE (21:10)
[2021-07-25] MEDS: Metoprolol Tartrate 50 MG Tab PO SCH ×3 (06:51→18:51)
[2021-07-25] MEDS: Furosemide 20 MG/2 ML VIAL IVPUSH SCH ×2 (08:29→20:11)
[2021-07-25] MEDS: Diltiazem 120 MG Cap.CD PO SCH (08:30)
[2021-07-25] MEDS: Apixaban 5 MG Tab PO SCH ×2 (08:30→20:12)
[2021-07-25] MEDS: REMDESIVIR 100 MG in Sodium Chloride 0.9% 250 ML IV SCH (12:27)
[2021-07-25] MEDS ORDERED: LORazepam 2 MG/ML SDV IVPUSH ONE (18:00)
[2021-07-26] MEDS ORDERED: oxyCODONE 5 MG Tab PO PRN (01:18)
[2021-07-26] MEDS ORDERED: OLANZapine 5 MG Tab PO ONE (01:20)
[2021-07-26] MEDS: Metoprolol Tartrate 50 MG Tab PO SCH ×2 (08:36→20:01)
[2021-07-26] MEDS: Diltiazem 120 MG Cap.CD PO SCH (08:36)
[2021-07-26] MEDS: Furosemide 20 MG/2 ML VIAL IVPUSH SCH ×2 (08:37→20:01)
[2021-07-26] MEDS: Apixaban 5 MG Tab PO SCH ×2 (08:37→20:01)
[2021-07-26] MEDS ORDERED: Albuterol 6.7 GM Inhaler INH PRN (09:57)
[2021-07-26] MEDS: REMDESIVIR 100 MG in Sodium Chloride 0.9% 250 ML IV SCH (13:25)
[2021-07-27] MEDS: Diltiazem 120 MG Cap.CD PO SCH (08:13)
[2021-07-27] MEDS: Metoprolol Tartrate 50 MG Tab PO SCH (08:14)
[2021-07-27] MEDS: Furosemide 20 MG/2 ML VIAL IVPUSH SCH (08:14)
[2021-07-27] MEDS: Apixaban 5 MG Tab PO SCH (08:14)
[2021-07-27] MEDS ORDERED: Diltiazem 120 MG Cap.CD PO ONE (10:12)
[2021-07-27] MEDS ORDERED: Metoprolol Tartrate 25 MG Tab PO ONE (10:14)
[2021-07-27] MEDS: REMDESIVIR 100 MG in Sodium Chloride 0.9% 250 ML IV SCH (13:03)
== END 2021-07-27 14:55 | disposition home or self-care (01) | DRG 177 ==
LOC: JD.ED 08:31 → JD.ICU 11:39
PROVIDERS: ADMIT Hospitalist; ATTEND Hospitalist
PROC: 8E0ZXY6 Isolation (ICD-10-PCS; principal; 2021-07-23)
PROC: XW033E5 Introduction of Remdesivir Anti-infective into Peripheral Vein, Percutaneous Approach, New Technology Group 5 (ICD-10-PCS; 2021-07-23)
PROC: 3E0333Z Introduction of Anti-inflammatory into Peripheral Vein, Percutaneous Approach (ICD-10-PCS; 2021-07-23)
DX: U07.1 COVID-19 (principal); J12.82 Pneumonia due to coronavirus disease 2019; I48.92 Unspecified atrial flutter; I50.20 Unspecified systolic (congestive) heart failure; I11.0 Hypertensive heart disease with heart failure; I25.10 Atherosclerotic heart disease of native coronary artery without angina pectoris; E78.5 Hyperlipidemia, unspecified; G47.33 Obstructive sleep apnea (adult) (pediatric); Z91.14 Patient's other noncompliance with medication regimen; Z98.890 Other specified postprocedural states; Z79.01 Long term (current) use of anticoagulants
CPT/HCPCS: 0240U; 36415; 71045; 71045-26; 71275; 71275-26; 80048; 80053; 80076; 83735; 83880; 84100; 84145; 84443; 84484; 85025; 85027; 85379; 85610; 85730; 86140; 93005; 93010; 93306; 96365; 96366; 96376; 99285; 99285-25; A9270-GY; J1100; J1940; J2060; J3490; J7050; Q9967

== ENCOUNTER 2021-08-01 08:43 | Emergency (ER) | payer SELFPAY ==
[2021-08-01] MEDS ORDERED: Sodium Chloride 0.9% 10 ML Syringe FLUSH PRN (09:34)
[2021-08-01] MEDS ORDERED: Sodium Chloride 0.9% 500 ML IV ONE (10:38)
[2021-08-01] MEDS ORDERED: Ibuprofen 800 MG Tab PO ONE (12:20)
[2021-08-01] MEDS ORDERED: Iopamidol 755 Mg/ML 100 ML Bottle IVPUSH ONE (12:28)
[2021-08-01] MEDS ORDERED: Sodium Chloride 0.9% 100 ML IV SCH (12:30)
== END 2021-08-01 12:18 | disposition left against medical advice (07) ==
LOC: JD.ED 08:43
DX: R07.89 Other chest pain (principal); K04.7 Periapical abscess without sinus; R06.02 Shortness of breath; R79.89 Other specified abnormal findings of blood chemistry; R79.0 Abnormal level of blood mineral; I48.91 Unspecified atrial fibrillation; I11.0 Hypertensive heart disease with heart failure; I50.9 Heart failure, unspecified; I25.2 Old myocardial infarction; Z79.82 Long term (current) use of aspirin; Z86.16 Personal history of COVID-19
CPT/HCPCS: 36415; 71046; 80053; 83880; 84484; 85007; 85027; 85379; 86140; 93005; 99285; J7030; 93010

== ENCOUNTER 2022-01-29 03:34 | Inpatient (IN) | payer MEDICAID, OTHER ==
[2022-01-29] MEDS ORDERED: Furosemide 40 MG/4 ML VIAL IVPUSH ONE (04:48)
[2022-01-29] MEDS: Sodium Chloride 0.9% 10 ML Syringe FLUSH PRN (04:57)
[2022-01-29] MEDS ORDERED: Diltiazem 25 MG/5 ML SDV IVPUSH ONE (04:59)
[2022-01-29] MEDS ORDERED: Diltiazem 125 MG in Sodium Chloride 0.9% 100 ML IV SCH (05:00)
[2022-01-29] MEDS ORDERED: Codeine/Promethazine 10-6.25 MG/5 ML Syrup 5 ML UD Cup PO STA (05:54)
[2022-01-29] MEDS ORDERED: Metoprolol Tartrate 100 MG Tab PO ONE (05:59)
[2022-01-29] MEDS ORDERED: Diltiazem 300 MG Cap.CD PO ONE (05:59)
[2022-01-29] MEDS ORDERED: Apixaban 5 MG Tab PO ONE (06:10)
[2022-01-29] MEDS ORDERED: Sodium Chloride 0.9% 500 ML IV ONE (07:29)
[2022-01-29] MEDS ORDERED: Ondansetron 4 MG Tab.DIS PO PRN (08:25)
[2022-01-29] MEDS ORDERED: Benzocaine/Cetylpyridinium/Menthol Lozenge MUCMEM PRN (11:15)
[2022-01-29] MEDS ORDERED: LORazepam 2 MG/ML SDV IVPUSH ONE (12:59)
[2022-01-29] MEDS ORDERED: Warfarin 5 MG Tab PO SCH (18:00)
[2022-01-29] MEDS: Docusate Sodium 100 MG Cap PO PRN (20:43)
[2022-01-29] MEDS: Metoprolol Tartrate 100 MG Tab PO SCH (20:44)
[2022-01-30] MEDS: Metoprolol Tartrate 100 MG Tab PO SCH ×2 (08:37→21:12)
[2022-01-30] MEDS: Losartan 50 MG Tab PO SCH (08:38)
[2022-01-30] MEDS: Furosemide 20 MG Tab PO SCH (08:38)
[2022-01-30] MEDS: Potassium Chloride 10 MEQ in Premix Bag 1 BAG IV SCH ×2 (08:40→10:00)
[2022-01-30] MEDS: Docusate Sodium 100 MG Cap PO PRN (08:55)
[2022-01-30] MEDS ORDERED: Potassium Chloride 20 MEQ Tab.ER PO ONE (09:41)
[2022-01-30] MEDS ORDERED: Warfarin 3 MG Tab PO SCH (18:00)
[2022-01-31] MEDS: Metoprolol Tartrate 100 MG Tab PO SCH ×2 (09:08→20:55)
[2022-01-31] MEDS: Losartan 50 MG Tab PO SCH (09:09)
[2022-01-31] MEDS: Furosemide 20 MG Tab PO SCH (09:10)
[2022-01-31] MEDS: Diltiazem 180 MG Cap.CD PO SCH (09:15)
[2022-01-31] MEDS: Sodium Chloride 0.9% 10 ML Syringe FLUSH PRN (09:57)
[2022-01-31] MEDS ORDERED: Potassium Bicarbonate/Cit Ac 20 MEQ Effervescent Tab PO ONE (10:00)
[2022-01-31] MEDS ORDERED: Warfarin 7.5 MG Tab PO SCH (18:00)
[2022-01-31] MEDS: Docusate Sodium 100 MG Cap PO PRN (21:03)
[2022-01-31] MEDS: Temazepam 15 MG Cap PO PRN (21:57)
[2022-02-01] MEDS: oxyCODONE 5 MG Tab PO PRN ×2 (03:17→22:32)
[2022-02-01] MEDS: Metoprolol Tartrate 100 MG Tab PO SCH ×2 (08:32→20:01)
[2022-02-01] MEDS: Diltiazem 180 MG Cap.CD PO SCH (08:34)
[2022-02-01] MEDS: Losartan 50 MG Tab PO SCH (08:34)
[2022-02-01] MEDS: Furosemide 20 MG Tab PO SCH (08:34)
[2022-02-01] MEDS ORDERED: Potassium Bicarbonate/Cit Ac 20 MEQ Effervescent Tab PO ONE (09:00)
[2022-02-01] MEDS ORDERED: Albuterol/Ipratropium 3.0-0.5 MG/3 ML Neb Soln NEB PRN (14:00)
[2022-02-01] MEDS ORDERED: Warfarin 4 MG Tab PO SCH (18:00)
[2022-02-01] MEDS: Temazepam 15 MG Cap PO PRN (22:16)
[2022-02-01] MEDS: Acetaminophen 325 MG Tab PO PRN (22:31)
[2022-02-01] MEDS: Docusate Sodium 100 MG Cap PO PRN (22:33)
[2022-02-02] MEDS ORDERED: Magnesium Hydroxide 400 MG/5 ML Susp 30 ML Cup PO ONE (06:00)
[2022-02-02] MEDS: Losartan 50 MG Tab PO SCH (08:30)
[2022-02-02] MEDS: Furosemide 20 MG Tab PO SCH (08:30)
[2022-02-02] MEDS: Diltiazem 180 MG Cap.CD PO SCH (08:30)
[2022-02-02] MEDS: Metoprolol Tartrate 100 MG Tab PO SCH (08:31)
[2022-02-02] MEDS ORDERED: LORazepam 1 MG Tab PO PRN (13:01)
[2022-02-02] MEDS ORDERED: Bumetanide 1 MG Tab PO SCH (13:30)
[2022-02-02] MEDS: oxyCODONE 5 MG Tab PO PRN (14:01)
[2022-02-02] MEDS: Acetaminophen 325 MG Tab PO PRN (14:01)
[2022-02-02] MEDS ORDERED: Warfarin 3 MG Tab PO SCH (18:00)
[2022-02-02] MEDS ORDERED: Rosuvastatin 10 MG Tab PO SCH (21:00)
== END 2022-02-02 14:20 | disposition left against medical advice (07) | DRG 291 ==
LOC: JD.ED 03:34 → JD.MS 07:37
PROVIDERS: ADMIT Emergency Medicine; ATTEND Internal Medicine
DX: I11.0 Hypertensive heart disease with heart failure (principal); I50.23 Acute on chronic systolic (congestive) heart failure; I48.92 Unspecified atrial flutter; G47.30 Sleep apnea, unspecified; M19.90 Unspecified osteoarthritis, unspecified site; I25.10 Atherosclerotic heart disease of native coronary artery without angina pectoris; E87.6 Hypokalemia; F41.9 Anxiety disorder, unspecified; Z98.890 Other specified postprocedural states; Z79.01 Long term (current) use of anticoagulants; Z79.899 Other long term (current) drug therapy; I25.2 Old myocardial infarction; Z86.74 Personal history of sudden cardiac arrest; Z86.16 Personal history of COVID-19
CPT/HCPCS: 36415; 71045; 71045-26; 80053; 83605; 83735; 83880; 84484; 85025; 85379; 85610; 86140; 86618; 93005; 93010; 93306; 94640; 94760; 94761; 96361; 96365; 96366; 96375; 96376; 99285; 99285-25; A9270-GY; J1940; J2060; J3480; J3490; J7030; J7620-GY

== ENCOUNTER 2023-03-06 20:33 | Emergency (ER) | payer MEDICAID ==
[2023-03-06 21:23] LABS: BASOPHILS PERCENT AUTO 0.6 % (0.0-1.0); EOSINOPHILS ABSOLUTE AUTO 0.2 K/mm3 (0.0-0.4); EOSINOPHILS PERCENT AUTO 3.2 % (0.0-6.0); HEMATOCRIT 42.2 % (42.0-52.0); HEMOGLOBIN 14.1 gm/dl (14.0-18.0); IMMATURE GRAN ABSOLUTE AUTO 0.01 K/mm3 (0.00-0.05); IMMATURE GRAN PERCENT AUTO 0.2 % (0.0-0.4); LYMPHOCYTES PERCENT AUTO 20.6 % (24.0-44.0); MEAN CORPUSCULAR HEMOGLOBIN 34.7 pg (28.0-32.0); MEAN CORPUSCULAR HGB CONC 33.4 g/dl (32.0-36.0); MEAN CORPUSCULAR VOLUME 103.9 fl (83.0-99.0); MEAN PLATELET VOLUME 8.3 fl (9.4-12.4); MONOCYTES ABSOLUTE AUTO 1.2 K/mm3 (0.0-0.8); MONOCYTES PERCENT AUTO 25.1 % (0.0-8.0); NEUTROPHILS ABSOLUTE AUTO 2.5 K/mm3 (1.8-7.7); NEUTROPHILS PERCENT AUTO 50.3 % (41.0-71.0); PLATELET COUNT,PLT 184 K/mm3 (150-400); RED BLOOD CELL COUNT 4.06 M/mm3 (4.52-5.90); WHITE BLOOD CELL COUNT,WBC 4.94 K/mm3 (3.9-11.3)
[2023-03-06] MEDS ORDERED: Sodium Chloride 0.9% 1,000 ML IV ONE ×2 (21:33→23:45)
[2023-03-06 21:48] LABS: A/G RATIO 0.9 (1-2); ALBUMIN 3.5 g/dl (3.4-5.0); ANION GAP 18.8 (5-15); BILIRUBIN TOTAL 0.5 mg/dL (0.2-1.0); BUN/CREATININE RATIO 9.8 (14-18); CALCIUM 9.5 mg/dL (8.5-10.1); CREATININE 4.9 mg/dL (0.7-1.3); EST CRCL DRUG DOSING (CG) 16.43 mL/min; POTASSIUM,K 3.8 mEq/L (3.5-5.1); PROTEIN TOTAL,TP 7.6 g/dl (6.4-8.2)
[2023-03-06 23:13] LABS: APPEARANCE,URINE SLT CLOUDY (Clear); BILIRUBIN,URINE NEGATIVE (Negative); COLOR,URINE YELLOW (Yellow); GLUCOSE,URINE 1+ (Negative); KETONES,URINE NEGATIVE (Negative); LEUKOCYTE ESTERASE,URINE TRACE (Negative); NITRITE,URINE NEGATIVE (Negative); OCCULT BLOOD,URINE 1+ (Negative); PROTEIN,URINE 1+ (Negative); UROBILINOGEN,URINE 0.2 (0.2-1.0)
[2023-03-06 23:28] LABS: BACTERIA,URINE FEW /hpf (FEW); MUCUS,URINE FEW /hpf (FEW); RBC,URINE 0-5 /hpf (0-5); SQUAMOUS EPITHELIAL CELLS,UR 0-5 /hpf (0-5); WBC,URINE 0-5 /hpf (0-5)
[2023-03-06 23:29] LABS: CALCIUM OXALATE CRYSTALS,URINE FEW; HYALINE CASTS,URINE 20-30 /lpf (0-5)
[2023-03-06] MEDS ORDERED: Sodium Chloride 0.9% 1,000 ML IV SCH (23:45)
[2023-03-07 00:22] LABS: ANION GAP 15.6 (5-15); BUN/CREATININE RATIO 10.2 (14-18); CALCIUM 8.6 mg/dL (8.5-10.1); CREATININE 4.4 mg/dL (0.7-1.3); EST CRCL DRUG DOSING (CG) 18.3 mL/min; POTASSIUM,K 3.6 mEq/L (3.5-5.1)
[2023-03-07 00:58] LABS: CREATININE,URINE RAND 66.4 mg/dL (30.0-125.0); PROTEIN CREATININE RATIO,URINE 1034.6 mg/g (0-149); PROTEIN,URINE RANDOM 68.7 mg/dL (0.0-11.8)
== END 2023-03-07 01:58 | disposition home or self-care (01) ==
LOC: JD.ED 20:33
DX: E86.0 Dehydration (principal); N17.9 Acute kidney failure, unspecified; R94.4 Abnormal results of kidney function studies; I48.91 Unspecified atrial fibrillation; I10 Essential (primary) hypertension; I25.2 Old myocardial infarction; Z79.899 Other long term (current) drug therapy
CPT/HCPCS: 36415; 76770; 80048; 80053; 81001; 82570; 84156; 85025; 96360; 96361; 99284; J7030; 99283

== ENCOUNTER 2023-04-22 06:34 | Emergency (ER) | payer SELFPAY ==
[2023-04-22] MEDS ORDERED: Ketorolac 60 MG/2 ML SDV IM ONE (07:12)
[2023-04-22 07:33] LABS: BASOPHILS PERCENT AUTO 0.7 % (0.0-1.0); EOSINOPHILS ABSOLUTE AUTO 0.2 K/mm3 (0.0-0.4); EOSINOPHILS PERCENT AUTO 2.8 % (0.0-6.0); HEMOGLOBIN 14.5 gm/dl (14.0-18.0); IMMATURE GRAN ABSOLUTE AUTO 0.02 K/mm3 (0.00-0.05); IMMATURE GRAN PERCENT AUTO 0.4 % (0.0-0.4); LYMPHOCYTES ABSOLUTE AUTO 1.2 K/mm3 (1.0-4.8); LYMPHOCYTES PERCENT AUTO 21.3 % (24.0-44.0); MEAN CORPUSCULAR HEMOGLOBIN 34.8 pg (28.0-32.0); MEAN CORPUSCULAR HGB CONC 33.7 g/dl (32.0-36.0); MEAN CORPUSCULAR VOLUME 103.1 fl (83.0-99.0); MEAN PLATELET VOLUME 8.5 fl (9.4-12.4); MONOCYTES ABSOLUTE AUTO 0.9 K/mm3 (0.0-0.8); MONOCYTES PERCENT AUTO 16.2 % (0.0-8.0); NEUTROPHILS ABSOLUTE AUTO 3.3 K/mm3 (1.8-7.7); NEUTROPHILS PERCENT AUTO 58.6 % (41.0-71.0); PLATELET COUNT,PLT 230 K/mm3 (150-400); RED BLOOD CELL COUNT 4.17 M/mm3 (4.52-5.90); WHITE BLOOD CELL COUNT,WBC 5.63 K/mm3 (3.9-11.3)
[2023-04-22 07:58] LABS: A/G RATIO 0.8 (1-2); ALBUMIN 3.6 g/dl (3.4-5.0); ANION GAP 18.1 (5-15); BILIRUBIN TOTAL 0.4 mg/dL (0.2-1.0); BUN/CREATININE RATIO 14.8 (14-18); CALCIUM 9.5 mg/dL (8.5-10.1); CREATININE 2.5 mg/dL (0.7-1.3); EST CRCL DRUG DOSING (CG) 35.35 mL/min; POTASSIUM,K 4.1 mEq/L (3.5-5.1); PROTEIN TOTAL,TP 7.9 g/dl (6.4-8.2)
== END 2023-04-22 09:20 | disposition home or self-care (01) ==
LOC: JD.ED 06:34
DX: S60.111A Contusion of right thumb with damage to nail, initial encounter (principal); J20.8 Acute bronchitis due to other specified organisms; I11.0 Hypertensive heart disease with heart failure; I50.9 Heart failure, unspecified; I25.2 Old myocardial infarction; I48.91 Unspecified atrial fibrillation; Z86.16 Personal history of COVID-19; Z79.01 Long term (current) use of anticoagulants; Z79.899 Other long term (current) drug therapy; W23.0XXA Caught, crushed, jammed, or pinched between moving objects, initial encounter
CPT/HCPCS: 36415; 71046; 73140; 80053; 85025; 96372; 99283; J1885

== ENCOUNTER 2023-07-16 21:31 | Emergency (ER) | payer SELFPAY ==
[2023-07-16 22:19] LABS: BASOPHILS PERCENT AUTO 0.6 % (0.0-1.0); EOSINOPHILS ABSOLUTE AUTO 0.1 K/mm3 (0.0-0.4); EOSINOPHILS PERCENT AUTO 2.3 % (0.0-6.0); HEMATOCRIT 43.9 % (42.0-52.0); IMMATURE GRAN ABSOLUTE AUTO 0.01 K/mm3 (0.00-0.05); IMMATURE GRAN PERCENT AUTO 0.2 % (0.0-0.4); LYMPHOCYTES PERCENT AUTO 20.6 % (24.0-44.0); MEAN CORPUSCULAR HEMOGLOBIN 34.2 pg (28.0-32.0); MEAN CORPUSCULAR HGB CONC 34.2 g/dl (32.0-36.0); MEAN PLATELET VOLUME 8.3 fl (9.4-12.4); MONOCYTES ABSOLUTE AUTO 1.2 K/mm3 (0.0-0.8); MONOCYTES PERCENT AUTO 25.6 % (0.0-8.0); NEUTROPHILS ABSOLUTE AUTO 2.4 K/mm3 (1.8-7.7); NEUTROPHILS PERCENT AUTO 50.7 % (41.0-71.0); PLATELET COUNT,PLT 221 K/mm3 (150-400); RED BLOOD CELL COUNT 4.39 M/mm3 (4.52-5.90)
[2023-07-16] MEDS: Dextrose 5%-0.9% NaCl 1,000 ML IV SCH (22:26)
[2023-07-16] MEDS: HYDROmorphone 0.5 MG/0.5 ML Syringe IVPUSH ONE (22:26)
[2023-07-16] MEDS: Metoclopramide 10 MG/2 ML SDV IVPUSH ONE (22:26)
[2023-07-16 22:38] LABS: A/G RATIO 0.9 (1-2); ALBUMIN 3.8 g/dl (3.4-5.0); ANION GAP 11.8 (5-15); BILIRUBIN TOTAL 0.8 mg/dL (0.2-1.0); BUN/CREATININE RATIO 12.8 (14-18); C-REACTIVE PROTEIN 0.3 mg/dL (<1.0); CALCIUM 8.7 mg/dL (8.5-10.1); CREATININE 2.5 mg/dL (0.7-1.3); EST CRCL DRUG DOSING (CG) 32.21 mL/min; MAGNESIUM 1.8 mg/dL (1.8-2.4); POTASSIUM,K 3.8 mEq/L (3.5-5.1); PROTEIN TOTAL,TP 8.1 g/dl (6.4-8.2)
== END 2023-07-17 06:16 | disposition home or self-care (01) ==
LOC: JD.ED 21:31
DX: J40 Bronchitis, not specified as acute or chronic (principal); R07.81 Pleurodynia; I11.0 Hypertensive heart disease with heart failure; I50.9 Heart failure, unspecified; I25.2 Old myocardial infarction; Z86.16 Personal history of COVID-19; Z79.01 Long term (current) use of anticoagulants; Z79.899 Other long term (current) drug therapy
CPT/HCPCS: 36415; 71045; 80053; 83735; 83880; 84484; 85025; 86140; 93005; 96361; 96374; 96375; 99285; J1170; J2765; J7042; 93010; 99284

== ENCOUNTER 2023-07-26 06:07 | Emergency (ER) | payer SELFPAY ==
[2023-07-26 07:14] LABS: BASOPHILS PERCENT AUTO 0.4 % (0.0-1.0); EOSINOPHILS ABSOLUTE AUTO 0.1 K/mm3 (0.0-0.4); EOSINOPHILS PERCENT AUTO 1.1 % (0.0-6.0); HEMATOCRIT 42.6 % (42.0-52.0); HEMOGLOBIN 14.7 gm/dl (14.0-18.0); IMMATURE GRAN ABSOLUTE AUTO 0.02 K/mm3 (0.00-0.05); IMMATURE GRAN PERCENT AUTO 0.3 % (0.0-0.4); LYMPHOCYTES PERCENT AUTO 13.7 % (24.0-44.0); MEAN CORPUSCULAR HEMOGLOBIN 34.4 pg (28.0-32.0); MEAN CORPUSCULAR HGB CONC 34.5 g/dl (32.0-36.0); MEAN CORPUSCULAR VOLUME 99.8 fl (83.0-99.0); MEAN PLATELET VOLUME 8.5 fl (9.4-12.4); MONOCYTES ABSOLUTE AUTO 1.4 K/mm3 (0.0-0.8); MONOCYTES PERCENT AUTO 19.9 % (0.0-8.0); NEUTROPHILS ABSOLUTE AUTO 4.5 K/mm3 (1.8-7.7); NEUTROPHILS PERCENT AUTO 64.6 % (41.0-71.0); PLATELET COUNT,PLT 216 K/mm3 (150-400); RED BLOOD CELL COUNT 4.27 M/mm3 (4.52-5.90); WHITE BLOOD CELL COUNT,WBC 6.99 K/mm3 (3.9-11.3)
[2023-07-26 07:31] LABS: INR 1.06; PROTHROMBIN TIME 11.3 SECONDS (9.7-12.0)
[2023-07-26 07:33] LABS: PTT,PARTIAL THROMBOPLSTIN TIME 37.1 SECONDS (21.7-31.4)
[2023-07-26 07:35] LABS: A/G RATIO 0.7 (1-2); ALANINE AMINOTRANSFERASE,ALT 21 U/L (16-63); ALBUMIN 3.2 g/dl (3.4-5.0); ALKALINE PHOSPHATASE 71 U/L (46-116); ANION GAP 15.7 (5-15); ASPARTATE AMNIOTRANSFERASE,AST 19 U/L (15-37); BILIRUBIN TOTAL 0.5 mg/dL (0.2-1.0); BLOOD UREA NITROGEN,BUN 19 mg/dL (7-18); BUN/CREATININE RATIO 5.8 (14-18); CALCIUM 8.7 mg/dL (8.5-10.1); CARBON DIOXIDE,CO2 23 mEq/L (21-32); CHLORIDE,CL 100 mEq/L (98-107); CREATININE 3.3 mg/dL (0.7-1.3); ESTIMATED GFR 21 mL/min (>60); ETHANOL BLOOD MEDICAL 0.06 gm% (0.00); GLUCOSE RANDOM 123 mg/dL (70-99); MAGNESIUM 2.3 mg/dL (1.8-2.4); POTASSIUM,K 3.7 mEq/L (3.5-5.1); PROTEIN TOTAL,TP 7.7 g/dl (6.4-8.2); SODIUM,NA 135 mEq/L (136-145)
[2023-07-26] MEDS: HYDROmorphone 1 MG/ML Syringe IM ONE (09:05)
== END 2023-07-26 09:21 | disposition home or self-care (01) ==
LOC: JD.ED 06:07
DX: N28.9 Disorder of kidney and ureter, unspecified (principal); M54.50 Low back pain, unspecified; I11.0 Hypertensive heart disease with heart failure; I50.9 Heart failure, unspecified; Z86.16 Personal history of COVID-19; Z79.899 Other long term (current) drug therapy
CPT/HCPCS: 36415; 70450; 72125; 72128; 72131; 80053; 80307; 83735; 85025; 85610; 85730; 96372; 99284; J1170

== ENCOUNTER 2023-10-22 01:37 | Emergency (ER) | payer SELFPAY ==
[2023-10-22 02:42] LABS: BASOPHILS PERCENT AUTO 0.9 % (0.0-1.0); EOSINOPHILS ABSOLUTE AUTO 0.2 K/mm3 (0.0-0.4); EOSINOPHILS PERCENT AUTO 4.4 % (0.0-6.0); HEMATOCRIT 41.8 % (42.0-52.0); IMMATURE GRAN ABSOLUTE AUTO 0.01 K/mm3 (0.00-0.05); IMMATURE GRAN PERCENT AUTO 0.2 % (0.0-0.4); LYMPHOCYTES ABSOLUTE AUTO 0.5 K/mm3 (1.0-4.8); LYMPHOCYTES PERCENT AUTO 12.4 % (24.0-44.0); MEAN CORPUSCULAR HEMOGLOBIN 34.4 pg (28.0-32.0); MEAN CORPUSCULAR HGB CONC 33.5 g/dl (32.0-36.0); MEAN CORPUSCULAR VOLUME 102.7 fl (83.0-99.0); MEAN PLATELET VOLUME 8.4 fl (9.4-12.4); MONOCYTES ABSOLUTE AUTO 0.7 K/mm3 (0.0-0.8); MONOCYTES PERCENT AUTO 16.4 % (0.0-8.0); NEUTROPHILS ABSOLUTE AUTO 2.9 K/mm3 (1.8-7.7); NEUTROPHILS PERCENT AUTO 65.7 % (41.0-71.0); PLATELET COUNT,PLT 193 K/mm3 (150-400); RED BLOOD CELL COUNT 4.07 M/mm3 (4.52-5.90); WHITE BLOOD CELL COUNT,WBC 4.34 K/mm3 (3.9-11.3)
[2023-10-22 03:03] LABS: A/G RATIO 0.9 (1-2); ALBUMIN 3.1 g/dl (3.4-5.0); BILIRUBIN TOTAL 0.8 mg/dL (0.2-1.0); BUN/CREATININE RATIO 13.2 (14-18); CALCIUM 8.9 mg/dL (8.5-10.1); CREATININE 1.9 mg/dL (0.7-1.3); EST CRCL DRUG DOSING (CG) 41.86 mL/min; PROTEIN TOTAL,TP 6.6 g/dl (6.4-8.2)
[2023-10-22 03:58] LABS: APPEARANCE,URINE SLT CLOUDY (Clear); BILIRUBIN,URINE NEGATIVE (Negative); COLOR,URINE YELLOW (Yellow); GLUCOSE,URINE NEGATIVE (Negative); KETONES,URINE NEGATIVE (Negative); LEUKOCYTE ESTERASE,URINE 2+ (Negative); NITRITE,URINE POSITIVE (Negative); OCCULT BLOOD,URINE TRACE-LYSED (Negative); PROTEIN,URINE 2+ (Negative)
[2023-10-22 04:06] LABS: RBC,URINE 0-5 /hpf (0-5); WBC,URINE 40-50 /hpf (0-5)
[2023-10-22 04:07] LABS: BACTERIA,URINE MANY /hpf (FEW); EPITHELIAL CELLS,URINE NOT SEEN /hpf (0-5); MUCUS,URINE NOT SEEN /hpf (FEW); WBC CLUMPS,URINE FEW /hpf (NOT SEEN)
[2023-10-22] MEDS: Lidocaine 4% 1 each Patch TOP ONE (04:45)
[2023-10-22] MEDS: Acetaminophen 325 MG Tab PO ONE (04:46)
== END 2023-10-22 04:55 | disposition home or self-care (01) ==
LOC: JD.ED 01:37
DX: N39.0 Urinary tract infection, site not specified (principal); R09.81 Nasal congestion; I48.91 Unspecified atrial fibrillation; I11.0 Hypertensive heart disease with heart failure; I50.9 Heart failure, unspecified; I25.2 Old myocardial infarction; Z86.16 Personal history of COVID-19; Z79.01 Long term (current) use of anticoagulants; Z79.899 Other long term (current) drug therapy
CPT/HCPCS: 36415; 80053; 81001; 81003; 85025; 87086; 99284; A9270

== ENCOUNTER 2023-12-08 23:27 | Emergency (ER) | payer SELFPAY ==
[2023-12-09] MEDS: Sodium Chloride 0.9% 500 ML IV ONE (00:15)
[2023-12-09 00:23] LABS: BASOPHILS PERCENT AUTO 0.7 % (0.0-1.0); EOSINOPHILS ABSOLUTE AUTO 0.1 K/mm3 (0.0-0.4); EOSINOPHILS PERCENT AUTO 3.1 % (0.0-6.0); HEMATOCRIT 41.8 % (42.0-52.0); HEMOGLOBIN 14.2 gm/dl (14.0-18.0); IMMATURE GRAN ABSOLUTE AUTO 0.01 K/mm3 (0.00-0.05); IMMATURE GRAN PERCENT AUTO 0.2 % (0.0-0.4); LYMPHOCYTES ABSOLUTE AUTO 0.7 K/mm3 (1.0-4.8); LYMPHOCYTES PERCENT AUTO 16.5 % (24.0-44.0); MEAN CORPUSCULAR HEMOGLOBIN 34.5 pg (28.0-32.0); MEAN CORPUSCULAR VOLUME 101.5 fl (83.0-99.0); MEAN PLATELET VOLUME 8.4 fl (9.4-12.4); MONOCYTES ABSOLUTE AUTO 0.8 K/mm3 (0.0-0.8); MONOCYTES PERCENT AUTO 19.8 % (0.0-8.0); NEUTROPHILS ABSOLUTE AUTO 2.5 K/mm3 (1.8-7.7); NEUTROPHILS PERCENT AUTO 59.7 % (41.0-71.0); PLATELET COUNT,PLT 218 K/mm3 (150-400); RED BLOOD CELL COUNT 4.12 M/mm3 (4.52-5.90); WHITE BLOOD CELL COUNT,WBC 4.25 K/mm3 (3.9-11.3)
[2023-12-09 00:48] LABS: ALBUMIN 3.5 g/dl (3.4-5.0); ANION GAP 14.7 (5-15); BILIRUBIN TOTAL 0.8 mg/dL (0.2-1.0); BUN/CREATININE RATIO 11.5 (14-18); CALCIUM 9.5 mg/dL (8.5-10.1); EST CRCL DRUG DOSING (CG) 39.77 mL/min; POTASSIUM,K 3.7 mEq/L (3.5-5.1); PROTEIN TOTAL,TP 7.2 g/dl (6.4-8.2)
[2023-12-09] MEDS: Lidocaine 4% 1 each Patch TOP PRN (01:07)
[2023-12-09] MEDS: Metoprolol Succinate 50 MG Tab.ER PO ONE (03:14)
[2023-12-09] MEDS: Losartan 25 MG Tab PO SCH (03:14)
[2023-12-09] MEDS ORDERED: Metoprolol Succinate 50 MG Tab.ER PO SCH (21:00)
== END 2023-12-09 03:24 | disposition home or self-care (01) ==
LOC: JD.ED 23:27
DX: K59.00 Constipation, unspecified (principal); I11.0 Hypertensive heart disease with heart failure; I50.9 Heart failure, unspecified; Z86.16 Personal history of COVID-19; Z79.899 Other long term (current) drug therapy
CPT/HCPCS: 36415; 74176; 80053; 83690; 85025; 96360; 99284; A9270; J7030; 99283

== ENCOUNTER 2024-02-09 03:02 | Emergency (ER) | payer SELFPAY | END 2024-02-09 06:55 | disposition home or self-care (01) | LOC: JD.ED 03:02 | DX: S90.512A Abrasion, left ankle, initial encounter (principal); L03.116 Cellulitis of left lower limb; I48.91 Unspecified atrial fibrillation; I11.0 Hypertensive heart disease with heart failure; I50.9 Heart failure, unspecified; I25.2 Old myocardial infarction; Z79.01 Long term (current) use of anticoagulants; Z79.899 Other long term (current) drug therapy; X58.XXXA Exposure to other specified factors, initial encounter | CPT/HCPCS: 73610-26-LT; 73610-LT; 99283 ==

== ENCOUNTER 2024-04-25 03:32 | Emergency (ER) | payer SELFPAY ==
[2024-04-25] MEDS ORDERED: Sodium Chloride 0.9% 10 ML Syringe FLUSH PRN (03:57)
[2024-04-25 04:20] LABS: BASOPHILS PERCENT AUTO 0.3 % (0.0-1.0); EOSINOPHILS ABSOLUTE AUTO 0.1 K/mm3 (0.0-0.4); EOSINOPHILS PERCENT AUTO 1.7 % (0.0-6.0); HEMATOCRIT 46.1 % (42.0-52.0); HEMOGLOBIN 16.1 gm/dl (14.0-18.0); IMMATURE GRAN ABSOLUTE AUTO 0.01 K/mm3 (0.00-0.05); IMMATURE GRAN PERCENT AUTO 0.1 % (0.0-0.4); LYMPHOCYTES PERCENT AUTO 13.9 % (24.0-44.0); MEAN CORPUSCULAR HEMOGLOBIN 35.2 pg (28.0-32.0); MEAN CORPUSCULAR HGB CONC 34.9 g/dl (32.0-36.0); MEAN CORPUSCULAR VOLUME 100.7 fl (83.0-99.0); MEAN PLATELET VOLUME 9.2 fl (9.4-12.4); MONOCYTES ABSOLUTE AUTO 0.9 K/mm3 (0.0-0.8); MONOCYTES PERCENT AUTO 12.1 % (0.0-8.0); NEUTROPHILS ABSOLUTE AUTO 5.1 K/mm3 (1.8-7.7); NEUTROPHILS PERCENT AUTO 71.9 % (41.0-71.0); PLATELET COUNT,PLT 244 K/mm3 (150-400); RED BLOOD CELL COUNT 4.58 M/mm3 (4.52-5.90); WHITE BLOOD CELL COUNT,WBC 7.03 K/mm3 (3.9-11.3)
[2024-04-25 04:22] LABS: A/G RATIO 0.9 (1-2); ALBUMIN 3.6 g/dl (3.4-5.0); ANION GAP 14.7 (5-15); BILIRUBIN TOTAL 0.7 mg/dL (0.2-1.0); BUN/CREATININE RATIO 11.1 (14-18); CALCIUM 9.2 mg/dL (8.5-10.1); CREATININE 1.9 mg/dL (0.7-1.3); EST CRCL DRUG DOSING (CG) 44.59 mL/min; POTASSIUM,K 3.7 mEq/L (3.5-5.1); PROTEIN TOTAL,TP 7.6 g/dl (6.4-8.2)
[2024-04-25] MEDS: Sodium Chloride 0.9% 1,000 ML IV ONE (04:28)
[2024-04-25] MEDS: Ondansetron 4 MG/2 ML SDV IVPUSH ONE (04:28)
[2024-04-25] MEDS: HYDROmorphone 0.5 MG/0.5 ML Syringe IVPUSH ONE ×2 (04:28→05:57)
[2024-04-25] MEDS: Iopamidol 612 MG/ML 100 ML Bottle IVPUSH ONE (04:44)
[2024-04-25] MEDS ORDERED: Naloxone 0.4 MG/ML SDV IVPUSH PRN ×2 (05:48→06:18)
[2024-04-25 06:00] LABS: PROTHROMBIN TIME 10.6 SECONDS (9.7-12.0)
[2024-04-25 06:01] LABS: PTT,PARTIAL THROMBOPLSTIN TIME 28.9 SECONDS (21.7-31.4)
[2024-04-25] MEDS: HYDROmorphone 1 MG/ML Syringe IVPUSH ONE (06:51)
[2024-04-25 07:54] LABS: APPEARANCE,URINE CLEAR (Clear); BILIRUBIN,URINE 1+ (Negative); COLOR,URINE ORANGE (Yellow); GLUCOSE,URINE NEGATIVE (Negative); KETONES,URINE TRACE (Negative); LEUKOCYTE ESTERASE,URINE TRACE (Negative); NITRITE,URINE NEGATIVE (Negative); OCCULT BLOOD,URINE NEGATIVE (Negative); PH,URINE 5.5 (5.0-8.0); PROTEIN,URINE 2+ (Negative)
[2024-04-25 08:10] LABS: RBC,URINE 0-5 /hpf (0-5)
[2024-04-25 08:11] LABS: BACTERIA,URINE FEW /hpf (FEW); MUCUS,URINE FEW /hpf (FEW)
== END 2024-04-25 07:30 ==
LOC: JD.ED 03:32
DX: S30.1XXA Contusion of abdominal wall, initial encounter (principal); I48.91 Unspecified atrial fibrillation; I11.0 Hypertensive heart disease with heart failure; I50.9 Heart failure, unspecified; I25.2 Old myocardial infarction; Z79.899 Other long term (current) drug therapy; Z79.01 Long term (current) use of anticoagulants; W22.8XXA Striking against or struck by other objects, initial encounter
CPT/HCPCS: 36415; 74177; 74177-26; 80053; 81001; 83605; 83690; 85025; 85610; 85730; 87086; 96361; 96374; 96375; 96376; 99284; 99285-25; J1171; J2405; J7030; Q9967

== ENCOUNTER 2024-06-25 15:25 | Emergency (ER) | payer MEDICAID ==
[2024-06-25] MEDS ORDERED: Metoprolol Tartrate 5 MG in Sodium Chloride 0.9% 50 ML IV ONE (15:50)
[2024-06-25 15:56] LABS: BASOPHILS PERCENT AUTO 0.5 % (0.0-1.0); EOSINOPHILS PERCENT AUTO 0.5 % (0.0-6.0); HEMOGLOBIN 14.9 gm/dl (14.0-18.0); IMMATURE GRAN ABSOLUTE AUTO 0.01 K/mm3 (0.00-0.05); IMMATURE GRAN PERCENT AUTO 0.2 % (0.0-0.4); LYMPHOCYTES ABSOLUTE AUTO 0.7 K/mm3 (1.0-4.8); LYMPHOCYTES PERCENT AUTO 11.9 % (24.0-44.0); MEAN CORPUSCULAR HEMOGLOBIN 34.7 pg (28.0-32.0); MEAN CORPUSCULAR HGB CONC 34.7 g/dl (32.0-36.0); MEAN CORPUSCULAR VOLUME 100.2 fl (83.0-99.0); MEAN PLATELET VOLUME 8.8 fl (9.4-12.4); MONOCYTES ABSOLUTE AUTO 0.6 K/mm3 (0.0-0.8); MONOCYTES PERCENT AUTO 9.5 % (0.0-8.0); NEUTROPHILS ABSOLUTE AUTO 4.5 K/mm3 (1.8-7.7); NEUTROPHILS PERCENT AUTO 77.4 % (41.0-71.0); PLATELET COUNT,PLT 220 K/mm3 (150-400); RED BLOOD CELL COUNT 4.29 M/mm3 (4.52-5.90); WHITE BLOOD CELL COUNT,WBC 5.81 K/mm3 (3.9-11.3)
[2024-06-25] MEDS: Aspirin 81 MG Tab.Chew PO ONE (16:06)
[2024-06-25] MEDS: Metoprolol Tartrate 5 MG/5 ML SDV IV ONE (16:07)
[2024-06-25 16:27] LABS: A/G RATIO 1.1 (1-2); ALANINE AMINOTRANSFERASE,ALT 54 U/L (16-63); ALBUMIN 3.6 g/dl (3.4-5.0); ALKALINE PHOSPHATASE 81 U/L (46-116); ANION GAP 13.7 (5-15); ASPARTATE AMNIOTRANSFERASE,AST 51 U/L (15-37); BILIRUBIN TOTAL 0.7 mg/dL (0.2-1.0); BLOOD UREA NITROGEN,BUN 22 mg/dL (7-18); BUN/CREATININE RATIO 12.2 (14-18); C-REACTIVE PROTEIN 0.97 mg/dL (<0.30); CARBON DIOXIDE,CO2 25 mEq/L (21-32); CHLORIDE,CL 105 mEq/L (98-107); CREATININE 1.8 mg/dL (0.7-1.3); ESTIMATED GFR 43 mL/min (>60); GLUCOSE RANDOM 78 mg/dL (70-99); MAGNESIUM 1.8 mg/dL (1.8-2.4); POTASSIUM,K 3.7 mEq/L (3.5-5.1); SODIUM,NA 140 mEq/L (136-145); TROPONIN I HIGH SENSITIVITY 31 pg/mL (<=76)
== END 2024-06-25 18:55 | disposition home or self-care (01) ==
LOC: JD.ED 15:25
DX: R07.89 Other chest pain (principal); I11.0 Hypertensive heart disease with heart failure; I50.9 Heart failure, unspecified; Z79.01 Long term (current) use of anticoagulants; Z79.899 Other long term (current) drug therapy; I48.91 Unspecified atrial fibrillation; E78.00 Pure hypercholesterolemia, unspecified; I25.2 Old myocardial infarction; Z86.16 Personal history of COVID-19
CPT/HCPCS: 36415; 71045; 76705; 80053; 83735; 84484; 85025; 86140; 96374; 99285; A9270; J3490

== ENCOUNTER 2024-06-25 22:53 | Emergency (ER) | payer MEDICAID ==
[2024-06-26] MEDS: Iopamidol 612 MG/ML 100 ML Bottle IVPUSH ONE (00:01)
[2024-06-26] MEDS: Sodium Chloride 0.9% 10 ML Syringe FLUSH PRN (00:13)
[2024-06-26 00:18] LABS: BASOPHILS PERCENT AUTO 0.5 % (0.0-1.0); EOSINOPHILS PERCENT AUTO 0.7 % (0.0-6.0); HEMATOCRIT 46.5 % (42.0-52.0); HEMOGLOBIN 15.9 gm/dl (14.0-18.0); IMMATURE GRAN ABSOLUTE AUTO 0.01 K/mm3 (0.00-0.05); IMMATURE GRAN PERCENT AUTO 0.2 % (0.0-0.4); LYMPHOCYTES ABSOLUTE AUTO 0.9 K/mm3 (1.0-4.8); LYMPHOCYTES PERCENT AUTO 16.1 % (24.0-44.0); MEAN CORPUSCULAR HEMOGLOBIN 34.2 pg (28.0-32.0); MEAN CORPUSCULAR HGB CONC 34.2 g/dl (32.0-36.0); MEAN PLATELET VOLUME 8.8 fl (9.4-12.4); MONOCYTES ABSOLUTE AUTO 0.6 K/mm3 (0.0-0.8); MONOCYTES PERCENT AUTO 11.6 % (0.0-8.0); NEUTROPHILS ABSOLUTE AUTO 3.9 K/mm3 (1.8-7.7); NEUTROPHILS PERCENT AUTO 70.9 % (41.0-71.0); PLATELET COUNT,PLT 259 K/mm3 (150-400); RED BLOOD CELL COUNT 4.65 M/mm3 (4.52-5.90); WHITE BLOOD CELL COUNT,WBC 5.54 K/mm3 (3.9-11.3)
[2024-06-26 00:19] LABS: A/G RATIO 1.1 (1-2); ALBUMIN 3.9 g/dl (3.4-5.0); ANION GAP 14.6 (5-15); BILIRUBIN TOTAL 1.1 mg/dL (0.2-1.0); BUN/CREATININE RATIO 11.1 (14-18); CALCIUM 9.3 mg/dL (8.5-10.1); CREATININE 1.9 mg/dL (0.7-1.3); EST CRCL DRUG DOSING (CG) 41.86 mL/min; POTASSIUM,K 3.6 mEq/L (3.5-5.1); PROTEIN TOTAL,TP 7.6 g/dl (6.4-8.2)
[2024-06-26 02:03] LABS: APPEARANCE,URINE CLEAR (Clear); BILIRUBIN,URINE NEGATIVE (Negative); COLOR,URINE YELLOW (Yellow); GLUCOSE,URINE NEGATIVE (Negative); KETONES,URINE 1+ (Negative); LEUKOCYTE ESTERASE,URINE 1+ (Negative); NITRITE,URINE NEGATIVE (Negative); OCCULT BLOOD,URINE NEGATIVE (Negative); PROTEIN,URINE NEGATIVE (Negative); UROBILINOGEN,URINE 0.2 (0.2-1.0)
[2024-06-26 02:13] LABS: BARBITURATE SCREEN,URINE NEGATIVE (CUTOFF=200); BENZODIAZEPINES SCREEN,URINE NEGATIVE (CUTOFF=150); BUPRENORPHINE SCREEN,URINE NEGATIVE (CUTOFF=10); METHADONE SCREEN, URINE NEGATIVE (CUT0FF=200); METHAMPHETAMINES SCREEN, URINE PRESUMPTIVE POSITIVE (CUTOFF=500); OXYCODONE SCREEN,URINE NEGATIVE (CUT0FF=100); THC SCREEN,URINE 20 NG/ML NEGATIVE (CUTOFF=50)
[2024-06-26 02:28] LABS: AMPHETAMINES SCREEN, URINE PRESUMPTIVE POSITIVE (CUTOFF=500)
[2024-06-26 02:35] LABS: RBC,URINE NOT SEEN /hpf (0-5); WBC,URINE 0-5 /hpf (0-5)
[2024-06-26 02:36] LABS: BACTERIA,URINE NOT SEEN /hpf (FEW); EPITHELIAL CELLS,URINE 0-5 /hpf (0-5)
[2024-06-26 02:38] LABS: MUCUS,URINE NOT SEEN /hpf (FEW)
== END 2024-06-26 03:39 | disposition home or self-care (01) ==
LOC: JD.ED 22:53
DX: R10.9 Unspecified abdominal pain (principal); F15.90 Other stimulant use, unspecified, uncomplicated; I48.91 Unspecified atrial fibrillation; I25.2 Old myocardial infarction; I11.0 Hypertensive heart disease with heart failure; I50.9 Heart failure, unspecified; Z86.16 Personal history of COVID-19; Z79.01 Long term (current) use of anticoagulants; Z79.899 Other long term (current) drug therapy
CPT/HCPCS: 36415; 74177; 80053; 80306; 81001; 85025; 87086; 99284; Q9967

== ENCOUNTER 2024-06-26 12:45 | Emergency (ER) | payer MEDICAID | END 2024-06-26 13:30 | disposition left against medical advice (07) | LOC: JD.ED 12:45 | DX: Z53.21 Procedure and treatment not carried out due to patient leaving prior to being seen by health care provider (principal) ==

== ENCOUNTER 2025-04-17 18:07 | Emergency (ER) | payer MEDICAID ==
[2025-04-17] MEDS ORDERED: Sodium Chloride 0.9% 10 ML Syringe FLUSH PRN (18:19)
[2025-04-17 18:30] LABS: BASOPHILS ABSOLUTE AUTO 0.0 K/mm3 (0.0-0.2); BASOPHILS PERCENT AUTO 0.3 % (0.0-1.0); EOSINOPHILS ABSOLUTE AUTO 0.0 K/mm3 (0.0-0.4); EOSINOPHILS PERCENT AUTO 0.2 % (0.0-6.0); IMMATURE GRAN ABSOLUTE AUTO 0.04 K/mm3 (0.00-0.05); IMMATURE GRAN PERCENT AUTO 0.4 % (0.0-0.4); LYMPHOCYTES ABSOLUTE AUTO 1.4 K/mm3 (1.0-4.8); LYMPHOCYTES PERCENT AUTO 14.5 % (24.0-44.0); MEAN PLATELET VOLUME 9.5 fl (9.4-12.4); MONOCYTES ABSOLUTE AUTO 0.5 K/mm3 (0.0-0.8); MONOCYTES PERCENT AUTO 5.0 % (0.0-8.0); NEUTROPHILS ABSOLUTE AUTO 7.5 K/mm3 (1.8-7.7); NEUTROPHILS PERCENT AUTO 79.6 % (41.0-71.0); NRBC ABSOLUTE 0.00 (0.00-0.02); NRBC PERCENT 0.0 % (0.0-0.2); PLATELET COUNT,PLT 330 K/mm3 (150-400); RED BLOOD CELL COUNT 4.65 M/mm3 (4.52-5.90); WHITE BLOOD CELL COUNT,WBC 9.39 K/mm3 (3.9-11.3)
[2025-04-17] MEDS: Iopamidol 755 Mg/ML 100 ML Bottle IVPUSH ONE (18:47)
[2025-04-17] MEDS: Sodium Chloride 0.9% 10 ML Syringe FLUSH ONE (18:47)
[2025-04-17 19:00] LABS: A/G RATIO 1.0 (1-2); ALANINE AMINOTRANSFERASE,ALT 31.0 U/L (16-63); ASPARTATE AMNIOTRANSFERASE,AST 36.0 U/L (15-37); BILIRUBIN TOTAL 0.7 mg/dL (0.2-1.0); BLOOD UREA NITROGEN,BUN 29.0 mg/dL (7-18); CARBON DIOXIDE,CO2 22.0 mEq/L (21-32); CHLORIDE,CL 107.0 mEq/L (98-107); CREATININE 2.6 mg/dL (0.7-1.3); EST CRCL DRUG DOSING (CG) 30.21 mL/min; ESTIMATED GFR 27.0 mL/min (>60); ETHANOL BLOOD MEDICAL 0.06 gm% (0.00); GLUCOSE RANDOM 126.0 mg/dL (70-99); POTASSIUM,K 4.0 mEq/L (3.5-5.1); PROTEIN TOTAL,TP 7.7 g/dl (6.4-8.2); SODIUM,NA 144.0 mEq/L (136-145)
[2025-04-17] MEDS ORDERED: Naloxone 0.4 MG/ML SDV IVPUSH PRN (19:08)
== END 2025-04-17 22:55 | disposition home or self-care (01) ==
LOC: JD.ED 18:07
DX: S01.01XA Laceration without foreign body of scalp, initial encounter (principal); M54.6 Pain in thoracic spine; R79.89 Other specified abnormal findings of blood chemistry; I11.0 Hypertensive heart disease with heart failure; I50.9 Heart failure, unspecified; I48.91 Unspecified atrial fibrillation; I25.2 Old myocardial infarction; M19.90 Unspecified osteoarthritis, unspecified site; Z86.16 Personal history of COVID-19; Z79.899 Other long term (current) drug therapy; W01.198A Fall on same level from slipping, tripping and stumbling with subsequent striking against other object, initial encounter; Y04.8XXA Assault by other bodily force, initial encounter
CPT/HCPCS: 12002; 36415; 70450; 71260; 72125; 72128; 74177; 80053; 80307; 83690; 85025; 96361; 96374; 96376; 99284; J1171; J7030; Q9967

== ENCOUNTER 2025-04-23 01:47 | Inpatient (IN) | payer MEDICAID ==
[2025-04-23] MEDS ORDERED: Sodium Chloride 0.9% 10 ML Syringe FLUSH PRN (02:19)
[2025-04-23] MEDS: Ketorolac 30 MG/ML SDV IVPUSH ONE (02:30)
[2025-04-23] MEDS: Ondansetron 4 MG/2 ML SDV IVPUSH ONE (02:30)
[2025-04-23 02:33] LABS: BASOPHILS ABSOLUTE AUTO 0.0 K/mm3 (0.0-0.2); BASOPHILS PERCENT AUTO 0.2 % (0.0-1.0); EOSINOPHILS ABSOLUTE AUTO 0.0 K/mm3 (0.0-0.4); EOSINOPHILS PERCENT AUTO 0.2 % (0.0-6.0); IMMATURE GRAN ABSOLUTE AUTO 0.02 K/mm3 (0.00-0.05); IMMATURE GRAN PERCENT AUTO 0.2 % (0.0-0.4); LYMPHOCYTES ABSOLUTE AUTO 1.3 K/mm3 (1.0-4.8); LYMPHOCYTES PERCENT AUTO 10.7 % (24.0-44.0); MEAN PLATELET VOLUME 9.6 fl (9.4-12.4); MONOCYTES ABSOLUTE AUTO 0.9 K/mm3 (0.0-0.8); MONOCYTES PERCENT AUTO 6.9 % (0.0-8.0); NEUTROPHILS ABSOLUTE AUTO 10.1 K/mm3 (1.8-7.7); NEUTROPHILS PERCENT AUTO 81.8 % (41.0-71.0); NRBC ABSOLUTE 0.00 (0.00-0.02); NRBC PERCENT 0.0 % (0.0-0.2); PLATELET COUNT,PLT 397 K/mm3 (150-400); RED BLOOD CELL COUNT 4.43 M/mm3 (4.52-5.90); WHITE BLOOD CELL COUNT,WBC 12.41 K/mm3 (3.9-11.3)
[2025-04-23 03:12] LABS: A/G RATIO 1.0 (1-2); ALANINE AMINOTRANSFERASE,ALT 45.0 U/L (16-63); ASPARTATE AMNIOTRANSFERASE,AST 37.0 U/L (15-37); BILIRUBIN TOTAL 0.7 mg/dL (0.2-1.0); BLOOD UREA NITROGEN,BUN 42.0 mg/dL (7-18); CARBON DIOXIDE,CO2 19.0 mEq/L (21-32); CHLORIDE,CL 98.0 mEq/L (98-107); CREATININE 4.4 mg/dL (0.7-1.3); EST CRCL DRUG DOSING (CG) 17.85 mL/min; ESTIMATED GFR 15.0 mL/min (>60); GLUCOSE RANDOM 63.0 mg/dL (70-99); POTASSIUM,K 5.0 mEq/L (3.5-5.1); PROTEIN TOTAL,TP 7.4 g/dl (6.4-8.2); SODIUM,NA 136.0 mEq/L (136-145)
[2025-04-23 05:11] LABS: BLOOD UREA NITROGEN,BUN 41.0 mg/dL (7-18); CARBON DIOXIDE,CO2 20.0 mEq/L (21-32); CHLORIDE,CL 101.0 mEq/L (98-107); CREATININE 3.9 mg/dL (0.7-1.3); EST CRCL DRUG DOSING (CG) 20.14 mL/min; ESTIMATED GFR 17.0 mL/min (>60); GLUCOSE RANDOM 61.0 mg/dL (70-99); POTASSIUM,K 5.0 mEq/L (3.5-5.1); SODIUM,NA 135.0 mEq/L (136-145)
[2025-04-23 05:28] LABS: APPEARANCE,URINE CLEAR (Clear); GLUCOSE,URINE NEGATIVE (Negative); OCCULT BLOOD,URINE TRACE-INTACT (Negative)
[2025-04-23] MEDS: Diltiazem 25 MG/5 ML SDV IVPUSH ONE (05:28)
[2025-04-23 05:47] LABS: SQUAMOUS EPITHELIAL CELLS,UR 0-5 /hpf (0-5)
[2025-04-23] MEDS ORDERED: Ondansetron 4 MG/2 ML SDV IV PRN (08:21)
[2025-04-23 11:46] LABS: BUPRENORPHINE SCREEN,URINE NEGATIVE (CUTOFF=10); METHADONE SCREEN, URINE NEGATIVE (CUT0FF=200); METHAMPHETAMINES SCREEN, URINE PRESUMPTIVE POSITIVE (CUTOFF=500); OXYCODONE SCREEN,URINE NEGATIVE (CUT0FF=100); THC SCREEN,URINE 20 NG/ML NEGATIVE (CUTOFF=50)
[2025-04-23 11:47] LABS: AMPHETAMINES SCREEN, URINE PRESUMPTIVE POSITIVE (CUTOFF=500)
[2025-04-23 17:07] LABS: TSH 0.492 uIU/mL (0.358-3.74)
[2025-04-24 04:28] LABS: BASOPHILS ABSOLUTE AUTO 0.0 K/mm3 (0.0-0.2); BASOPHILS PERCENT AUTO 0.2 % (0.0-1.0); EOSINOPHILS ABSOLUTE AUTO 0.1 K/mm3 (0.0-0.4); EOSINOPHILS PERCENT AUTO 0.8 % (0.0-6.0); IMMATURE GRAN ABSOLUTE AUTO 0.02 K/mm3 (0.00-0.05); IMMATURE GRAN PERCENT AUTO 0.2 % (0.0-0.4); LYMPHOCYTES ABSOLUTE AUTO 0.7 K/mm3 (1.0-4.8); LYMPHOCYTES PERCENT AUTO 8.1 % (24.0-44.0); MEAN PLATELET VOLUME 9.4 fl (9.4-12.4); MONOCYTES ABSOLUTE AUTO 0.9 K/mm3 (0.0-0.8); MONOCYTES PERCENT AUTO 11.2 % (0.0-8.0); NEUTROPHILS ABSOLUTE AUTO 6.6 K/mm3 (1.8-7.7); NEUTROPHILS PERCENT AUTO 79.5 % (41.0-71.0); NRBC ABSOLUTE 0.00 (0.00-0.02); NRBC PERCENT 0.0 % (0.0-0.2); PLATELET COUNT,PLT 257 K/mm3 (150-400); RED BLOOD CELL COUNT 3.51 M/mm3 (4.52-5.90); WHITE BLOOD CELL COUNT,WBC 8.36 K/mm3 (3.9-11.3)
[2025-04-24 05:11] LABS: A/G RATIO 0.8 (1-2); ALANINE AMINOTRANSFERASE,ALT 27.0 U/L (16-63); ASPARTATE AMNIOTRANSFERASE,AST 20.0 U/L (15-37); BILIRUBIN TOTAL 0.5 mg/dL (0.2-1.0); BLOOD UREA NITROGEN,BUN 38.0 mg/dL (7-18); CARBON DIOXIDE,CO2 24.0 mEq/L (21-32); CHLORIDE,CL 109.0 mEq/L (98-107); CREATININE 3.2 mg/dL (0.7-1.3); EST CRCL DRUG DOSING (CG) 24.55 mL/min; ESTIMATED GFR 21.0 mL/min (>60); GLUCOSE RANDOM 107.0 mg/dL (70-99); POTASSIUM,K 4.8 mEq/L (3.5-5.1); PROTEIN TOTAL,TP 5.5 g/dl (6.4-8.2); SODIUM,NA 139.0 mEq/L (136-145)
[2025-04-24] MEDS: Magnesium Citrate Solution 296 ML Bottle PO ONE (15:36)
[2025-04-25 04:24] LABS: BASOPHILS ABSOLUTE AUTO 0.0 K/mm3 (0.0-0.2); BASOPHILS PERCENT AUTO 0.6 % (0.0-1.0); EOSINOPHILS ABSOLUTE AUTO 0.1 K/mm3 (0.0-0.4); EOSINOPHILS PERCENT AUTO 1.8 % (0.0-6.0); IMMATURE GRAN ABSOLUTE AUTO 0.01 K/mm3 (0.00-0.05); IMMATURE GRAN PERCENT AUTO 0.2 % (0.0-0.4); LYMPHOCYTES ABSOLUTE AUTO 0.8 K/mm3 (1.0-4.8); LYMPHOCYTES PERCENT AUTO 15.4 % (24.0-44.0); MEAN PLATELET VOLUME 9.6 fl (9.4-12.4); MONOCYTES ABSOLUTE AUTO 0.7 K/mm3 (0.0-0.8); MONOCYTES PERCENT AUTO 13.3 % (0.0-8.0); NEUTROPHILS ABSOLUTE AUTO 3.4 K/mm3 (1.8-7.7); NEUTROPHILS PERCENT AUTO 68.7 % (41.0-71.0); NRBC ABSOLUTE 0.00 (0.00-0.02); NRBC PERCENT 0.0 % (0.0-0.2); PLATELET COUNT,PLT 229 K/mm3 (150-400); RED BLOOD CELL COUNT 3.53 M/mm3 (4.52-5.90); WHITE BLOOD CELL COUNT,WBC 4.88 K/mm3 (3.9-11.3)
[2025-04-25 05:06] LABS: BLOOD UREA NITROGEN,BUN 33.0 mg/dL (7-18); CARBON DIOXIDE,CO2 28.0 mEq/L (21-32); CHLORIDE,CL 109.0 mEq/L (98-107); CREATININE 2.2 mg/dL (0.7-1.3); EST CRCL DRUG DOSING (CG) 35.71 mL/min; ESTIMATED GFR 33.0 mL/min (>60); GLUCOSE RANDOM 92.0 mg/dL (70-99); POTASSIUM,K 4.9 mEq/L (3.5-5.1); SODIUM,NA 143.0 mEq/L (136-145)
== END 2025-04-25 12:40 | disposition home or self-care (01) | DRG 392 ==
LOC: JD.ED 01:47 → JD.MS 06:25
PROVIDERS: ADMIT Family Medicine; ATTEND Family Medicine
DX: K29.80 Duodenitis without bleeding (principal); N17.9 Acute kidney failure, unspecified; I48.91 Unspecified atrial fibrillation; E86.0 Dehydration; I50.9 Heart failure, unspecified; F41.9 Anxiety disorder, unspecified; M19.90 Unspecified osteoarthritis, unspecified site; G47.30 Sleep apnea, unspecified; I11.0 Hypertensive heart disease with heart failure; F15.10 Other stimulant abuse, uncomplicated; S01.01XD Laceration without foreign body of scalp, subsequent encounter; F32.89 Other specified depressive episodes; E03.9 Hypothyroidism, unspecified; H54.7 Unspecified visual loss; E05.90 Thyrotoxicosis, unspecified without thyrotoxic crisis or storm; R09.02 Hypoxemia; D72.829 Elevated white blood cell count, unspecified; Z79.1 Long term (current) use of non-steroidal anti-inflammatories (NSAID); Z79.899 Other long term (current) drug therapy; I25.2 Old myocardial infarction; Z86.74 Personal history of sudden cardiac arrest; Z79.01 Long term (current) use of anticoagulants; Z98.890 Other specified postprocedural states; X58.XXXD Exposure to other specified factors, subsequent encounter
CPT/HCPCS: 36415; 71045; 71045-26; 74176; 74176-26; 80048; 80053; 80306; 80307; 81001; 83690; 83735; 84443; 84484; 85025; 86140; 87338; 93005; 93010; 94761; 96361; 96374; 96375; 96376; 97112-GP; 97116-GP; 97162-GP; 97165-GO; 97530-GO; 99285; 99285-25; A9270-GY; J1163; J1171; J1885; J2405; J7030; J7042; J7121

== ENCOUNTER 2025-04-27 04:47 | Emergency (ER) | payer MEDICAID ==
[2025-04-27] MEDS ORDERED: Ketorolac 60 MG/2 ML SDV IM STA (05:22)
[2025-04-27 05:34] LABS: BASOPHILS ABSOLUTE AUTO 0.0 K/mm3 (0.0-0.2); BASOPHILS PERCENT AUTO 0.5 % (0.0-1.0); EOSINOPHILS ABSOLUTE AUTO 0.1 K/mm3 (0.0-0.4); EOSINOPHILS PERCENT AUTO 1.2 % (0.0-6.0); IMMATURE GRAN ABSOLUTE AUTO 0.03 K/mm3 (0.00-0.05); IMMATURE GRAN PERCENT AUTO 0.4 % (0.0-0.4); LYMPHOCYTES ABSOLUTE AUTO 0.8 K/mm3 (1.0-4.8); LYMPHOCYTES PERCENT AUTO 10.4 % (24.0-44.0); MEAN PLATELET VOLUME 9.5 fl (9.4-12.4); MONOCYTES ABSOLUTE AUTO 0.7 K/mm3 (0.0-0.8); MONOCYTES PERCENT AUTO 9.6 % (0.0-8.0); NEUTROPHILS ABSOLUTE AUTO 5.7 K/mm3 (1.8-7.7); NEUTROPHILS PERCENT AUTO 77.9 % (41.0-71.0); NRBC ABSOLUTE 0.00 (0.00-0.02); NRBC PERCENT 0.0 % (0.0-0.2); PLATELET COUNT,PLT 271 K/mm3 (150-400); RED BLOOD CELL COUNT 3.81 M/mm3 (4.52-5.90); WHITE BLOOD CELL COUNT,WBC 7.31 K/mm3 (3.9-11.3)
[2025-04-27] MEDS: Ondansetron 4 MG/2 ML SDV IV STA (05:45)
[2025-04-27] MEDS: Ketorolac 30 MG/ML SDV IVPUSH ONE (05:45)
[2025-04-27 06:11] LABS: A/G RATIO 0.9 (1-2); ALANINE AMINOTRANSFERASE,ALT 26.0 U/L (16-63); ASPARTATE AMNIOTRANSFERASE,AST 25.0 U/L (15-37); BILIRUBIN TOTAL 0.8 mg/dL (0.2-1.0); BLOOD UREA NITROGEN,BUN 25.0 mg/dL (7-18); CARBON DIOXIDE,CO2 29.0 mEq/L (21-32); CHLORIDE,CL 106.0 mEq/L (98-107); CREATINE KINASE,CK 171.0 U/L (39-308); CREATININE 2.0 mg/dL (0.7-1.3); EST CRCL DRUG DOSING (CG) 39.28 mL/min; ESTIMATED GFR 38.0 mL/min (>60); GLUCOSE RANDOM 89.0 mg/dL (70-99); POTASSIUM,K 4.5 mEq/L (3.5-5.1); PROTEIN TOTAL,TP 6.4 g/dl (6.4-8.2); SODIUM,NA 141.0 mEq/L (136-145); TROPONIN I HIGH SENSITIVITY 16.0 pg/mL (<=76)
[2025-04-27 06:12] LABS: ETHANOL BLOOD MEDICAL 0.0 gm% (0.00)
== END 2025-04-27 07:01 | disposition home or self-care (01) ==
LOC: JD.ED 04:47
DX: S00.03XA Contusion of scalp, initial encounter (principal); I11.0 Hypertensive heart disease with heart failure; Z79.899 Other long term (current) drug therapy; I50.9 Heart failure, unspecified; M62.838 Other muscle spasm; I48.11 Longstanding persistent atrial fibrillation; Z79.01 Long term (current) use of anticoagulants; Z87.448 Personal history of other diseases of urinary system; Z87.898 Personal history of other specified conditions; W18.30XA Fall on same level, unspecified, initial encounter
CPT/HCPCS: 36415; 70450; 80053; 80307; 82550; 83735; 84484; 85025; 93005; 96361; 96374; 96375; 99284; A9270; J1885; J2405; J7030; 93010